=== PATIENT | male | born 1970 | race Caucasian/White ===

== ENCOUNTER 2016-07-07 12:27 | Inpatient (IN) | payer OTHER ==
[~2016-07-07] VITALS: Ht 182.9 cm; Wt 101.9 kg
[~2016-07-07 12:27] MED LIST: COLA100C2; KEFL500C; NEUR600T; PERC5TAB8; PRIL20CA
[2016-07-07] MEDS ORDERED: PANTOPRAZOLE 40MG INJ (PROTONIX) (C9113) As Ordered ONE (13:02)
[2016-07-07] MEDS ORDERED: METOPROLOL 5 MG/5 ML VIAL As Ordered ONE ×3 (13:02→14:30)
[2016-07-07] MEDS ORDERED: ASPIRIN 81 MG CHEW TABLET As Ordered ONE (13:02)
[2016-07-07] MEDS ORDERED: METOPROLOL TART 50 MG TAB As Ordered ONE ×2 (13:02→23:05)
[2016-07-07 13:07] LABS: BASO # 0.2 K/mm3 (0.0-0.2); BASO % 1.6 % (0.0-1.0); EOS # 0.1 K/mm3 (0.0-0.50); EOS % 0.8 % (0.0-3.0); LARGE UNSTAINED CELL # 0.2 K/mm3 (0.0-0.4); LARGE UNSTAINED CELL % 2.3 % (0.0-4.0); LYMPH # 3.2 K/mm3 (1.5-4.5); LYMPH % 28.6 % (24.0-44.0); MEAN CORPUSCULAR HEMOGLOBIN 33.6 pg (27.0-33.0); MEAN CORPUSCULAR HGB CONC 34.8 g/dl (32.0-36.5); MEAN CORPUSCULAR VOLUME 96.4 fl (80.0-96.0); MONO # 0.7 K/mm3 (0.0-0.8); MONO % 6.2 % (0.0-5.0); NEUTROPHILS # 6.3 K/mm3 (1.8-7.7); NEUTROPHILS % 60.5 % (36.0-66.0); PLATELET COUNT, AUTOMATED 207 k/mm3 (150-450); RED CELL DISTRIBUTION WIDTH 13.4 % (11.5-14.5); WHITE BLOOD COUNT 10.5 K/mm3 (4.0-10.0)
[2016-07-07 13:08] LABS: INR 1.03
[2016-07-07 13:18] LABS: ANION GAP 10 MEQ/L (8-16); BLOOD UREA NITROGEN 10 MG/DL (7-18); CALCIUM LEVEL 9.2 MG/DL (8.5-10.1); CARBON DIOXIDE LEVEL 28 MEQ/L (21-32); CHLORIDE LEVEL 100 MEQ/L (98-107); CREATININE FOR GFR 1.09 MG/DL (0.70-1.30); GLOMERULAR FILTRATION RATE > 60.0 (>60); GLUCOSE, FASTING 169 MG/DL (70-105); SODIUM LEVEL 138 MEQ/L (136-145)
[2016-07-07] MEDS ORDERED: POTASSIUM CHLORIDE 10 MEQ SR TABLET As Ordered ONE (13:51)
[2016-07-07 14:02] LABS: ALBUMIN 3.8 GM/DL (3.2-5.2); ALBUMIN/GLOBULIN RATIO 0.93 (1.00-1.93); ALKALINE PHOSPHATASE 79 U/L (45-117); ALT/SGPT 41 U/L (12-78); AST/SGOT 46 U/L (15-37); BILIRUBIN,DIRECT 0.2 MG/DL (0.0-0.2); BILIRUBIN,TOTAL 0.8 MG/DL (0.2-1.0); MAGNESIUM LEVEL 1.9 MG/DL (1.8-2.4); TOTAL PROTEIN 7.9 GM/DL (6.4-8.2)
--- NOTE | 2016-07-07 15:48 | REP ---
Portable chest x-ray: Sitting AP view. History: Chest pain. Findings: The lungs are well inflated and clear. Pleural angles are sharp. Heart is not enlarged. EKG electrodes are seen. An azygos lobe is noted incidentally as before. The patient is status post lower cervical spine fusion. Impression: No active disease. Signed by Kevin Boogie MD 07/07/2016 04:03 P
[2016-07-07] MEDS ORDERED: OMEP20TA PO (15:49)
[2016-07-07] MEDS ORDERED: NORC7.5T PO (15:49)
[2016-07-07] MEDS ORDERED: XANA1TAB2 PO (15:49)
[2016-07-07] MEDS ORDERED: TRIA37.53 PO (15:49)
[2016-07-07] MEDS ORDERED: ENOXAPARIN 100MG/1ML SYRINGE (J1650) As Ordered ONE (16:14)
[2016-07-07] MEDS ORDERED: ONDANSETRON 4MG/2ML VIAL (J2405) IV PRN (17:45)
[2016-07-07] MEDS ORDERED: ONDANSETRON 4 MG TAB (S0181) PO PRN (17:45)
[2016-07-07] MEDS ORDERED: ACETAMINOPHEN TAB 650MG DOSE (2X325MG) PO PRN (17:45)
[2016-07-07] MEDS ORDERED: IPRATROPIUM 0.5MG/ALBUTEROL 2.5MG INH SOL UD 3ML (DUONEB)(J7620) NEB PRN (17:45)
--- NOTE | 2016-07-07 17:58 | HPEPDOC ---
Medical History and Physical Date of Admission 07/07/2016 History and Physical HISTORY AND PHYSICAL Date of admission: 07/07/2016 PCP: Dr. Dumont Chief complaint: Intermittent chest pressure and rapid heart rate HPI: 45-year-old male with hypertension, chronic pain, alcohol dependence, possible COPD, GERD who presented with intermittent chest pressure and rapid heart rate for several months. He states that when these episodes happen, he gets shortness of breath and doesn't feel very well. He has noted that these episodes are worse if he is doing any sort of activity, such as snow blowing. He says that they usually resolve on their own is nothing in particular makes them better. He had written it off for a while as indigestion but he finally became so uncomfortable today that he decided to come to the emergency department. In the ER, he was found to have a new diagnosis of A. fib with a heart rate up to 195. He has responded well to beta blockade and now has a heart rate around the 110s to 120s range. Past medical history: Hypertension, chronic pain, alcohol dependence, possible COPD, GERD Past surgical history: C-spine fusion, knee surgery Family history: Throat cancer, breast cancer, bladder cancer, heart attack, diabetes Social history: Patient states that he used to smoke 1-1/2 packs per day but is trying to cut down and currently smokes about 1 pack per day. He states that he uses marijuana regularly. He states that he used to use cocaine but it has been several years since his last episode. He does report drinking alcohol daily, but is vague about how much. There are some reports to the ED providers that he drank up to 20 some odd beers daily, but he was telling me that he drinks more like 4-6 daily. Allergies: No known allergies Review of systems: General: Positive for subjective fever and chills. Eyes: Positive for vision changes. Negative for ocular discharge ENT: Positive for chronic sore throat. Negative for nose bleed Cardiovascular: Positive for chest pressure and palpitations Respiratory: Positive for cough and shortness of breath GI: Positive for diarrhea. Negative for nausea and vomiting Musculoskeletal: Positive for chronic neck pain Skin: Negative for rash Neuro: Positive for headache, dizziness, and chronic numbness and tingling of his left arm. Psych: Positive for depression. Negative for suicidal ideation and hallucinations. Endocrine: Positive for polyuria. : Negative for dysuria. Heme: Negative for bruising and bleeding Home meds: See below Physical exam: Vital signs: Blood pressure 113/74, HR 110 to 130, temperature 98.7, O2 sat 99% on 2 L, RR 18 Gen.: awake, alert, no acute distress Eyes: Extraocular movements intact, normal sclera ENT: Moist mucous membranes Cardiovascular: Irregularly irregular, tachycardic Lungs: Diffusely coarse with mild wheeze Abdomen: Soft, NT/ND, normal BS Musculoskeletal: normal range of motion Extremities: No peripheral edema Neuro: alert and oriented 3, normal speech, no focal deficits Psych: Normal mood with congruent affect Labs and radiology: See below Troponin negative BNP 213 TSH within normal limits Chest x-ray unremarkable Assessment and plan: 45-year-old male with hypertension, chronic pain, alcohol dependence, possible COPD, GERD who presented with intermittent chest pressure and rapid heart rate for several months. He is being admitted for new diagnosis atrial fibrillation with rapid ventricular response. 1. New diagnosis A. fib with RVR: The patient's heart rate has improved significantly with beta-blockade. We will start him on metoprolol 50 mg by mouth every 6 hours with holding parameters. We will monitor him on telemetry and check an echo. Dr. Deluca will be seeing him in consultation, and initially the patient will be started on treatment dose Lovenox. Initial troponin was unremarkable, but we will continue to trend these. 2. Alcohol dependence: The patient will be started on scheduled Serax, as well as as needed Ativan for withdrawal symptoms. The patient also reports that he has been on 1 mg of Xanax 4 times a day for the past year, and ran out of these several days ago. I suspect that he is also experiencing some withdrawal from the benzos. 3. Hypertension: Continue home triamterene and hydrochlorothiazide. 4. Chronic pain: Continue home medicines. 5. Possible COPD: The patient's lungs are mildly coarse. We'll put the patient on as needed DuoNeb's. 6. GERD: Continue home PPI. DVT prophylaxis: Treatment dose Lovenox Dispo: admit as an inpatient to the service of Dr. Landon. CODE STATUS: Full code Vital Signs see above Laboratory Data Labs 24H Laboratory Tests 2 07/07/16 12:42: Activated Partial Thromboplast Time 29.0, Aspartate Amino Transf (AST/SGOT) 46H , Alanine Aminotransferase (ALT/SGPT) 41, Alkaline Phosphatase 79, Total Bilirubin 0.8, Direct Bilirubin 0.2, Albumin 3.8, Albumin/Globulin Ratio 0.93L, Anion Gap 10, B-Type Natriuretic Peptide 213H, White Blood Count 10.5H, Red Blood Count 4.77, Hemoglobin 16.0, Hematocrit 46.0, Mean Corpuscular Volume 96.4H, Mean Corpuscular Hemoglobin 33.6H, Mean Corpuscular Hemoglobin Concent 34.8, Red Cell Distribution Width 13.4, Platelet Count 207, Neutrophils (%) ( Auto) 60.5, Lymphocytes (%) (Auto) 28.6, Monocytes (%) (Auto) 6.2H, Eosinophils (%) (Auto) 0.8, Basophils (%) (Auto) 1.6H, Neutrophils # (Auto) 6.3, Lymphocytes # (Auto) 3.2, Monocytes # (Auto) 0.7, Eosinophils # (Auto) 0.1, Basophils # (Auto) 0.2, Calcium Level 9.2, Creatine Kinase MB 9.0H, Creatine Kinase MB Relative Index 1.86, Glomerular Filtration Rate > 60.0, Large Unclassified Cells # 0.2, Large Unclassified Cells % 2.3, Lipase 166, Magnesium Level 1.9, Prothromb Time International Ratio 1.03, Prothrombin Time 13.6, Thyroid Stimulating Hormone (TSH) 1.340, Total Creatine Kinase 483H, Total Protein 7.9, Troponin I < 0.02 CBC/BMP Laboratory Tests 07/07/16 12:42 Red Blood Count 4.77, Mean Corpuscular Volume 96.4 H, Mean Corpuscular Hemoglobin 33.6 H, Mean Corpuscular Hemoglobin Concent 34.8, Red Cell Distribution Width 13.4, Neutrophils (%) (Auto) 60.5, Lymphocytes (%) (Auto) 28.6, Monocytes (%) (Auto) 6.2 H, Eosinophils (%) (Auto) 0.8, Basophils (%) ( Auto) 1.6 H, Neutrophils # (Auto) 6.3, Lymphocytes # (Auto) 3.2, Monocytes # ( Auto) 0.7, Eosinophils # (Auto) 0.1, Basophils # (Auto) 0.2 Home Medications Scheduled Hydrochlorothiazide W/Triamter (Triamterene/Hydrochloroth 37.5-25 mg) 1 Cap Cap 1 CAP PO DAILY Omeprazole (Omeprazole) 20 Mg Tab 20 MG PO BID Scheduled PRN Acetaminophen/Hydrocodone ([place] 7.5-325 mg) 1 Tab Tab 1 TAB PO TID PRN PRN PAIN Alprazolam (Xanax) 1 Mg Tab 1 MG PO QID PRN PRN ANXIETY Allergies Coded Allergies: No Known Allergies (Verified Allergy, Unknown, 07/29/07) RICHARD PENA Jul 07, 2016 17:58
[2016-07-07] MEDS: METOPROLOL TART 50 MG TAB PO SCH ×2 (18:00→23:15)
[2016-07-07] MEDS ORDERED: NICOTINE 21MG/24HR 1 EA TRANSDERMAL As Ordered ONE (18:08)
[2016-07-07] MEDS ORDERED: ACETAMINOPHEN 325 MG TAB As Ordered ONE (18:08)
--- NOTE | 2016-07-07 19:17 | ECGEPIP ---
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 RBBB Electronically Signed On 07-07-2016 19:17:33 EST by Ollie Jones
--- NOTE | 2016-07-07 19:20 | ECGEPIP ---
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 RBBB BORDERLINE LEFT AXIS DEVIATION RATE IMPROVED FROM 07/07/15 12:37 Electronically Signed On 07-07-2016 19:20:48 EST by Ollie Jones
[2016-07-07] MEDS ORDERED: NITROGLYCERIN 0.4 MG SUBL TABLET As Ordered ONE (19:41)
[2016-07-07] MEDS ORDERED: ANEXSIA, NORCO 7.5MG/325MG TABLET(HYDROCODONE/APAP) PO ONE (20:15)
[2016-07-07] MEDS ORDERED: ANEXSIA, NORCO 7.5MG/325MG TABLET(HYDROCODONE/APAP) As Ordered ONE (20:20)
[2016-07-07 22:45] VITALS: BP 142/88
[2016-07-07] MEDS ORDERED: OMEPRAZOLE 20 MG CAP As Ordered ONE (23:04)
[2016-07-07] MEDS ORDERED: OXAZEPAM 15 MG CAP As Ordered ONE (23:05)
[2016-07-07] MEDS: OMEPRAZOLE 20 MG CAP PO SCH (23:15)
[2016-07-07] MEDS: OXAZEPAM 15 MG CAP PO SCH (23:15)
[2016-07-07] MEDS ORDERED: LORazepam 2 MG/ML VIAL (J2060) As Ordered ONE (23:19)
[2016-07-07] MEDS: LORazepam 2 MG/ML VIAL (J2060) IV PRN (23:21)
[2016-07-08] VITALS (8 sets, daily range): BP systolic 104–156; BP diastolic 63–93
[2016-07-08] MEDS ORDERED: ENOXAPARIN 100MG/1ML SYRINGE (J1650) SC SCH ×2 (06:00→06:18)
[2016-07-08] MEDS ORDERED: ENOXAPARIN 120 MG/0.8 ML SYR (J1650) SC SCH (06:00)
[2016-07-08] MEDS ORDERED: OXAZEPAM 15 MG CAP As Ordered ONE ×2 (06:16→13:57)
[2016-07-08] MEDS ORDERED: METOPROLOL TART 50 MG TAB As Ordered ONE ×2 (06:16→11:54)
[2016-07-08] MEDS: METOPROLOL TART 50 MG TAB PO SCH ×3 (06:30→18:20)
[2016-07-08] MEDS: OXAZEPAM 15 MG CAP PO SCH ×3 (06:31→21:26)
[2016-07-08] MEDS: ENOXAPARIN 120 MG/0.8 ML SYR (J1650) SC SCH ×2 (06:32→19:13)
[2016-07-08] MEDS ORDERED: ANEXSIA, NORCO 7.5MG/325MG TABLET(HYDROCODONE/APAP) As Ordered ONE (06:37)
[2016-07-08] MEDS: ANEXSIA, NORCO 7.5MG/325MG TABLET(HYDROCODONE/APAP) PO PRN ×2 (06:39→18:23)
[2016-07-08 08:58] LABS: BASO # 0.1 K/mm3 (0.0-0.2); BASO % 0.8 % (0.0-1.0); EOS # 0.2 K/mm3 (0.0-0.50); EOS % 1.9 % (0.0-3.0); LARGE UNSTAINED CELL # 0.3 K/mm3 (0.0-0.4); LARGE UNSTAINED CELL % 2.9 % (0.0-4.0); LYMPH # 2.7 K/mm3 (1.5-4.5); LYMPH % 29.7 % (24.0-44.0); MEAN CORPUSCULAR HEMOGLOBIN 34.1 pg (27.0-33.0); MEAN CORPUSCULAR HGB CONC 34.9 g/dl (32.0-36.5); MEAN CORPUSCULAR VOLUME 97.7 fl (80.0-96.0); MONO # 0.6 K/mm3 (0.0-0.8); MONO % 6.1 % (0.0-5.0); NEUTROPHILS # 5.4 K/mm3 (1.8-7.7); NEUTROPHILS % 58.6 % (36.0-66.0); PLATELET COUNT, AUTOMATED 193 k/mm3 (150-450); RED CELL DISTRIBUTION WIDTH 12.5 % (11.5-14.5); WHITE BLOOD COUNT 9.2 K/mm3 (4.0-10.0)
[2016-07-08] MEDS ORDERED: DYAZIDE 37.5/25 CAP (TRIAM/HCTZ) PO SCH (09:00)
[2016-07-08 09:14] LABS: INR 1.14
[2016-07-08 09:20] LABS: ALBUMIN 3.4 GM/DL (3.2-5.2); ALKALINE PHOSPHATASE 70 U/L (45-117); ALT/SGPT 35 U/L (12-78); ANION GAP 8 MEQ/L (8-16); AST/SGOT 31 U/L (15-37); BILIRUBIN,TOTAL 0.8 MG/DL (0.2-1.0); BLOOD UREA NITROGEN 15 MG/DL (7-18); CARBON DIOXIDE LEVEL 29 MEQ/L (21-32); CHLORIDE LEVEL 104 MEQ/L (98-107); CREATININE FOR GFR 0.92 MG/DL (0.70-1.30); GLOMERULAR FILTRATION RATE > 60.0 (>60); GLUCOSE, FASTING 109 MG/DL (70-105); POTASSIUM SERUM 4.1 MEQ/L (3.5-5.1); SODIUM LEVEL 141 MEQ/L (136-145); TOTAL PROTEIN 6.8 GM/DL (6.4-8.2)
[2016-07-08] MEDS ORDERED: OMEPRAZOLE 20 MG CAP As Ordered ONE (09:20)
[2016-07-08] MEDS ORDERED: NICOTINE 21MG/24HR 1 EA TRANSDERMAL As Ordered ONE (09:20)
[2016-07-08] MEDS: OMEPRAZOLE 20 MG CAP PO SCH ×2 (09:24→21:26)
[2016-07-08] MEDS: NICOTINE 21MG/24HR 1 EA TRANSDERMAL TD SCH (09:25)
[2016-07-08] MEDS ORDERED: LORazepam 2 MG/ML VIAL (J2060) As Ordered ONE (11:49)
[2016-07-08] MEDS: LORazepam 2 MG/ML VIAL (J2060) IV PRN ×3 (11:56→22:23)
--- NOTE | 2016-07-08 17:53 | CR.PDOC ---
[facility] Cardiology Consultation Date of Consultation 07/08/16 Cadiology Consultation REFERRING PHYSICIAN: Dr. Felder REASON FOR REFERRAL: New onset A. fib HISTORY OF PRESENT ILLNESS: 45 y/o male w/ past medical history of chronic back and neck pain, HTN and alcohol abuse presents with pressure like CP in mid-sternal, epigastric area for past 20 years that was initially controlled with prilosec, have begun to notice over past 2 weeks diaphoresis after showering and shoveling snow. Nothing seems to make it better. The pt states that at times the chest pressure is now awakening him from sleep, and that his prilosec no longer controls the symptoms as it had been doing for the past 20 years. He admits to night sweats for the past 2 weeks, no history of being ill, no fevers or chills, muscle aches. Admits to palpitations, but these have been ongoing for the past 2 years. Denies any further cardiac history, and admits he has never been told nor known he had an irregular heart rhythm/rate. Denies dizziness or LOC. Admits to extensive and heavy alcohol history, pt currently drinks 2-22 beers a day for the past 15 years, also admits to using intranasal cocaine 5 years ago, smokes 1 ppd since he was a teenager and also daily marijuana use. Pt is disabled from chronic back pain and surgery. Echocardiogram Doppler: none to date [Regadenoson/Dobutamine] stress SPECT myocardial perfusion imaging 1. n/a ALLERGIES: Please see below. HOME MEDICATIONS: Please see below. CURRENT MEDICATIONS: Please see below. PAST MEDICAL & SURGICAL HISTORY: 1. Chronic alcohol use/abuse 2. chronic back and neck pain 3. HTN SURGICAL HX: 1. Carpal tunnel release 2. Cervical discectomy with fusion SOCIAL HISTORY: Heavy alcohol use/abuse of 2-22 beers a day for the past 15 years. Smokes 1 ppd since he was a teenager. Daily marijuana use. Has not done intranasal cocaine for >5 yrs. No history of IVDU. REVIEW OF SYSTEMS: Positive for mid sternal and epigastric chest pressure, for past 20 yrs. Pt states that it has been accompanied with 2 weeks of diaphoresis after showering and with physical activity such as snow shoveling. States he saw a primary care doctor in [place] about 20 years ago with similar complaints of the chest pressure, and he was prescribed Prilosec which have controlled the symptoms up until now. States the medication doesn't work as well and is concerned with the diaphoresis. Admits to night sweats for the past 2 weeks, and hesitancy with urination. Pt. also admits to heart palpitations that come on intermittently, unchanged for past 2 years. Cardio: palpitations for past 2 years unchanged, pressure like CP mid sternum, epigastric area for past 20 years usually resolved with Prilosec. Denied LOC or syncope. : hesitancy with urination and loose BM for years. Resp: Denies SOB or cough/wheezing Abdominal: Denies distension, abdominal pain or n/v HEENT: Admits to blurred vision since being in the ED, denies headache, sore throat All other 10 point review of systems questions negative. FAMILY HISTORY: non-pertinent PHYSICAL EXAMINATION: VITAL SIGNS: Please see below. GENERAL APPEARANCE: laying comfortably in ED bed, appears a bit diaphoretic on forehead, denies feeling heart palpitations EYES: PERRLA, EOMI, no icteric sclera ENT/Mouth: moist mucus membranes, tongue midline NECK: supple, cannot appreciate any JVD EXTREMITIES: + dorsalis pedis and posterior tibial pulses b/l, no cyanosis or clubbing or edema appreciated SKIN: intact, without bruising NEUROLOGIC/PSYCHOLOGIC: no focal deficit appreciated MUSCULOSKELETAL: good strength THORAX: non tender to palpitation above area of reported CP HEART: Tachycardic rate 140's while in bed, no murmurs appreciated, irregularly irregular pulse, normal s1 and s2 ARTERIAL PULSES: see above LOWER EXTREMITY EDEMA: no ABDOMEN: NABSx4, non distended, no organomeglay Electrocardiogram: ECG showed 07-07-2016 ATRIAL FIBRILLATION WITH RAPID VENTRICULAR RESPONSE INC. RBBB BORDERLINE LEFT AXIS DEVIATION LABORATORY DATA: Please see below. IMAGING: CXR negative ASSESSMENT/PLAN: 1. Atrial fibrillation most likely 2/2 chronic alcohol use- unfortunately unless pt dramatically decreases his alcohol intake, he will most likely always have episodes of a. fib., in addition to his metoprolol 50 mg q6h recommend adding on Cardizam PO 30 mg q8h for better rate control. Will hold on anticoagulation, and may consider adding on Lovenox in AM. 2. Alcohol abuse- pt is on serax and ativan for alcohol w/d, continue to monitor , primary team to manage. 3. HTN- pt's BP has been stable, continue to monitor, no changes at this point. Thank you kindly for asking me to participate in the care of your patient. Addendum Nathalie Deluca MD: Patient was seen and examined. I fully agree with assessment and plann outlined by . Vital Signs/I&O Vital Signs Date Time Temp Pulse Resp B/P Pulse Ox O2 Delivery O2 Flow Rate FiO2 07/08/16 17:00 Room Air 07/08/16 17:00 96.3 93 18 123/92 98 07/08/16 12:00 2.0 I&O- Last 24 Hours up to 6 AM 07/08/16 06:00 Intake Total 0 ml Output Total 0 ml Balance 0 ml Laboratory Data Labs 24H Laboratory Tests 2 07/07/16 19:51: Creatine Kinase MB 5.7H, Creatine Kinase MB Relative Index 1.79, Total Creatine Kinase 317H, Troponin I < 0.02 07/08/16 00:05: Creatine Kinase MB 6.3H, Creatine Kinase MB Relative Index 2.44, Total Creatine Kinase 258, Troponin I < 0.02 07/08/16 08:21: Creatine Kinase MB 4.9H, Creatine Kinase MB Relative Index 2.47, Total Creatine Kinase 198, Troponin I < 0.02, Blood Urea Nitrogen 15, Creatinine 0.92, Sodium Level 141, Potassium Level 4.1#, Chloride Level 104, Carbon Dioxide Level 29, Calcium Level 9.0, Aspartate Amino Transf (AST/SGOT) 31, Alanine Aminotransferase (ALT/SGPT) 35, Alkaline Phosphatase 70, Total Bilirubin 0.8, Total Protein 6.8, Albumin 3.4, Albumin/Globulin Ratio 1.00, Anion Gap 8, White Blood Count 9.2, Red Blood Count 4.62, Hemoglobin 15.8, Hematocrit 45.2, Mean Corpuscular Volume 97.7H, Mean Corpuscular Hemoglobin 34.1H, Mean Corpuscular Hemoglobin Concent 34.9, Red Cell Distribution Width 12.5, Platelet Count 193, Neutrophils (%) (Auto) 58.6, Lymphocytes (%) (Auto) 29.7, Monocytes (%) (Auto) 6.1H, Eosinophils (%) (Auto) 1.9, Basophils (%) (Auto) 0.8, Neutrophils # (Auto ) 5.4, Lymphocytes # (Auto) 2.7, Monocytes # (Auto) 0.6, Eosinophils # (Auto) 0.2, Basophils # (Auto) 0.1, Glomerular Filtration Rate > 60.0, Large Unclassified Cells # 0.3, Large Unclassified Cells % 2.9, Magnesium Level 2.0, Prothromb Time International Ratio 1.14, Prothrombin Time 14.7H CBC/BMP Laboratory Tests 07/08/16 08:21 Calcium Level 9.0, Aspartate Amino Transf (AST/SGOT) 31, Alanine Aminotransferase (ALT/SGPT) 35, Alkaline Phosphatase 70, Total Bilirubin 0.8, Total Protein 6.8, Albumin 3.4, Red Blood Count 4.62, Mean Corpuscular Volume 97.7 H, Mean Corpuscular Hemoglobin 34.1 H, Mean Corpuscular Hemoglobin Concent 34.9, Red Cell Distribution Width 12.5, Neutrophils (%) (Auto) 58.6, Lymphocytes (%) (Auto) 29.7, Monocytes (%) (Auto) 6.1 H, Eosinophils (%) (Auto) 1.9, Basophils (%) (Auto) 0.8, Neutrophils # (Auto) 5.4, Lymphocytes # (Auto) 2.7, Monocytes # (Auto) 0.6, Eosinophils # (Auto) 0.2, Basophils # (Auto) 0.1 Home Medications Scheduled Hydrochlorothiazide W/Triamter (Triamterene/Hydrochloroth 37.5-25 mg) 1 Cap Cap 1 CAP PO DAILY (Reported) Omeprazole (Omeprazole) 20 Mg Tab 20 MG PO BID (Reported) Scheduled PRN Acetaminophen/Hydrocodone ([facility] [place] 7.5-325 mg) 1 Tab Tab 1 TAB PO TID PRN PRN PAIN (Reported) Alprazolam (Xanax) 1 Mg Tab 1 MG PO QID PRN PRN ANXIETY (Reported) Current Medications Current Medications Acetaminophen (Tylenol) 650 mg Q4HP PRN PO MILD PAIN OR FEVER; Start 07/07/16 at 17:45; Stop 08/06/16 at 17:44 Acetaminophen (Tylenol) 650 mg STK-MED ONCE As Ordered ; Start 07/07/16 at 18:08 ; Stop 07/07/16 at 18:09; Status DC Acetaminophen/ Hydrocodone Bitart (Anexsia, [facility] [place] 7.5mg/325mg) 1 tab ONCE ONCE PO ; Start 07/07/16 at 20:15; Stop 07/07/16 at 20:16; Status DC Acetaminophen/ Hydrocodone Bitart (Anexsia, [facility] [place] 7.5mg/325mg) 1 tab STK-MED ONCE As Ordered ; Start 07/07/16 at 20:20; Stop 07/07/16 at 20:21; Status DC Acetaminophen/ Hydrocodone Bitart (Anexsia, [facility] [place] 7.5mg/325mg) 1 tab STK-MED ONCE As Ordered ; Start 07/08/16 at 06:37; Stop 07/08/16 at 06:38; Status DC Acetaminophen/ Hydrocodone Bitart (Anexsia, [facility] [place] 7.5mg/325mg) 1 tab TID PRN PO PAIN Last administered on 07/08/16t 06:39; Start 07/07/16 at 17:45; Stop at 17:44 Albuterol/ Ipratropium (Duoneb (Ipr 0.5mg/Alb 2.5mg)) 3 ml Q4HP PRN NEB SOB/ WHEEZING; Start 07/07/16 at 17:45; Stop 08/06/16 at 17:44 Aspirin (Aspirin Chewable) 324 mg STK-MED ONCE As Ordered ; Start 07/07/16 at 13: 02; Stop 07/07/16 at 13:03; Status DC Enoxaparin Sodium (Lovenox) 100 mg STK-MED ONCE As Ordered ; Start 07/07/16 at 16 :14; Stop 07/07/16 at 16:15; Status DC Enoxaparin Sodium (Lovenox) 120 mg Q12H SC Last administered on 07/08/16t 06:32 ; Start 07/08/16 at 06:00; Stop 07/13/16 at 05:59 Enoxaparin Sodium (Lovenox) 120 mg Q12H SC ; Start 07/08/16 at 06:00; Stop at 06:18; Status DC Enoxaparin Sodium (Lovenox) 120 mg Q12H SC ; Start 07/08/16 at 06:00; Stop at 06:20; Status DC Enoxaparin Sodium (Lovenox) 120 mg Q12H SC ; Start 07/08/16 at 06:18; Stop at 06:18; Status DC Home Med (Med Rec Complete!) ASDIRECTED XX ; Start 07/07/16 at 16:00; Stop at 16:12; Status DC Lorazepam (Ativan) 2 mg Q2HP PRN IV WITHDRAWAL SYMPTOMS Last administered on 11:56; Start 07/07/16 at 17:45; Stop 07/14/16 at 17:44 Lorazepam (Ativan) 2 mg STK-MED ONCE As Ordered ; Start 07/07/16 at 23:19; Stop 07/07/16 at 23:20; Status DC Lorazepam (Ativan) 2 mg STK-MED ONCE As Ordered ; Start 07/08/16 at 11:49; Stop 07/08/16 at 11:50; Status DC Metoprolol Tartrate (Lopressor) 15 mg STK-MED ONCE As Ordered ; Start 07/07/16 at 13:02; Stop 07/07/16 at 13:03; Status DC Metoprolol Tartrate (Lopressor) 15 mg STK-MED ONCE As Ordered ; Start 07/07/16 at 13:51; Stop 07/07/16 at 13:52; Status DC Metoprolol Tartrate (Lopressor) 15 mg STK-MED ONCE As Ordered ; Start 07/07/16 at 14:30; Stop 07/07/16 at 14:31; Status DC Metoprolol Tartrate (Lopressor) 50 mg Q6H PO Last administered on 07/08/16 11: 56; Start 07/07/16 at 18:00; Stop 08/06/16 at 17:59 Metoprolol Tartrate (Lopressor) 50 mg STK-MED ONCE As Ordered ; Start 07/07/16 at 13:02; Stop 07/07/16 at 13:03; Status DC Metoprolol Tartrate (Lopressor) 50 mg STK-MED ONCE As Ordered ; Start 07/07/16 at 23:05; Stop 07/07/16 at 23:06; Status DC Metoprolol Tartrate (Lopressor) 50 mg STK-MED ONCE As Ordered ; Start 07/08/16 at 06:16; Stop 07/08/16 at 06:17; Status DC Metoprolol Tartrate (Lopressor) 50 mg STK-MED ONCE As Ordered ; Start 07/08/16 at 11:54; Stop 07/08/16 at 11:55; Status DC Nicotine (Nicoderm Cq 21mg) 1 patch DAILY TD Last administered on 07/08/16 09: 25; Start 07/08/16 at 09:00; Stop 08/07/16 at 08:59 Nicotine (Nicoderm Cq 21mg) 1 patch STK-MED ONCE As Ordered ; Start 07/07/16 at 18:08; Stop 07/07/16 at 18:09; Status DC Nicotine (Nicoderm Cq 21mg) 1 patch STK-MED ONCE As Ordered ; Start 07/08/16 at 09:20; Stop 07/08/16 at 09:21; Status DC Nitroglycerin (Nitrostat (1/ 150)) 0.4 mg STK-MED ONCE As Ordered ; Start at 19:41; Stop 07/07/16 at 19:42; Status DC Omeprazole (PriLOSEC) 20 mg BID PO Last administered on 07/08/16 09:24; Start 07/07/16 at 21:00; Stop 08/06/16 at 20:59 Omeprazole (PriLOSEC) 20 mg STK-MED ONCE As Ordered ; Start 07/07/16 at 23:04; Stop 07/07/16 at 23:05; Status DC Omeprazole (PriLOSEC) 20 mg STK-MED ONCE As Ordered ; Start 07/08/16 at 09:20; Stop 07/08/16 at 09:21; Status DC Ondansetron HCl (Zofran) 4 mg Q6HP PRN IV NAUSEA OR VOMITING; Start 07/07/16 at 17:45; Stop 08/06/16 at 17:44 Ondansetron HCl (Zofran) 4 mg Q6HP PRN PO NAUSEA OR VOMITING; Start 07/07/16 at 17:45; Stop 08/06/16 at 17:44 Oxazepam (Serax) 15 mg Q8H PO Last administered on 07/08/16 14:02; Start at 22:00; Stop 07/14/16 at 21:59 Oxazepam (Serax) 15 mg STK-MED ONCE As Ordered ; Start 07/07/16 at 23:05; Stop at 23:06; Status DC Oxazepam (Serax) 15 mg STK-MED ONCE As Ordered ; Start 07/08/16 at 06:16; Stop at 06:17; Status DC Oxazepam (Serax) 15 mg STK-MED ONCE As Ordered ; Start 07/08/16 at 13:57; Stop at 13:58; Status DC Pantoprazole Sodium (Protonix) 40 mg STK-MED ONCE As Ordered ; Start 07/07/16 at 13:02; Stop 07/07/16 at 13:03; Status DC Potassium Chloride (Micro-K Extencaps) 40 meq STK-MED ONCE As Ordered ; Start at 13:51; Stop 07/07/16 at 13:52; Status DC Triamterene/HCTZ (Dyazide 37.5-25 Mg) 1 ea DAILY PO Last administered on t 09:24; Start 07/08/16 at 09:00; Stop 08/07/16 at 08:59 Allergies Allergies: Coded Allergies: No Known Allergies (Verified Allergy, Unknown, 07/29/07) GME ATTESTATION GME ATTESTATION My preceptor for this patient encounter was physically present in the building during the encounter and was fully available. As needed, all aspects of the patient interview, examination, medical decision making process, and medical care plan development were reviewed and approved by the preceptor. Preceptor is aware and concurs with the plan as stated in the body of this note and will attest to such by his/her cosignature. SHENA CAMILO DO Jul 08, 2016 17:53 Nathalie Deluca MD Jul 08, 2016 22:45
--- NOTE | 2016-07-08 17:55 | EDDOCDS ---
Nurse's Notes [facility] Name: Arley Harris Age: 45 yrs Sex: Male : 1970 Arrival Date: 07/07/2016 Time: 12:27 Bed Admit Hold Private MD: Isael Dumont Abdul Diagnosis: Persistent atrial fibrillation;Alcohol abuse;Hypokalemia Presentation: 07/07 12:28 Presenting complaint: Patient states: patient states that he ran out of his xanax and ml6 hydrocodone due to the holidays, patient diaphoretic, shaking, states that he is having chest pressure 6/10. Aspirin was not taken prior to arrival. Adult Sepsis Screening: The patient does not have new or worsening altered mentation. Patient's respiratory rate is less than 22. Systolic blood pressure is greater than 100. Patient has a qSOFA score of 0- Negative Sepsis Screen. Suicide/Homicide risk assessment- the patient denies having any suicidal and/or homicidal ideations and does not present with any other emotional, behavioral or mental health complaints. 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 Transition of care: patient was not received from another setting of care. Red Flag criteria, patient assessed and taken directly to a bed. 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 12:28 Acuity: PERLA Level 2 ml6 12:28 Method Of Arrival: Walkin/Carried/Asstd ml6 Triage Assessment: 12:43 General: Appears distressed. Pain: Location: chest Pain currently is 6 out of 10 on a ml6 pain scale. Pain does not radiate. Quality of pain is described as aching, Pain began 1 day ago. HIV screening NA for this visit Offered previously. Neurological: No deficits noted. Cardiovascular: Capillary refill < 3 seconds is brisk in bilateral fingers toes Heart tones S1 S2 present Edema is absent. Chest pain is described as mild, quality is pressure, radiates Does not radiate. episodes are continuous began 4 hours prior to arrival. Historical: - Allergies: no known allergies; - Home Meds: 1. hydrocodone-acetaminophen 7.5-325 mg Oral tab 2 tab every 8 hours (Last dose: 07/06/2016 20:00) 2. Xanax 1 mg Oral tab 1 tab every 6 hours (Last dose: 07/05/2016) 3. triamterene-hydrochlorothiazid 37.5-25 mg Oral tab 1 tab once daily (Last dose: 07/07/2016 07:00) - PMHx: back pain; Hypertension; ETOH abuse; - PSHx: Carpal Tunnel Repair- Bilateral; ANTERIOR CERVICAL DISCECTOMY WITH FUSION AND INSTRUMENTATION; - The history from nurses notes was reviewed: and I agree with what is documented. - Social history: Smoking status: Patient uses tobacco products, heavy tobacco smoker. No barriers to communication noted, Speaks appropriately for age, Patient uses alcohol reports 2 drinks this AM. - Family history: Not pertinent. - : The pt / caregiver states he / she is not on anticoagulants. Home medication list is obtained from the patient. - Hospitalizations: : No recent hospitalization is reported. - Exposure Risk Screening:: None identified. - Immunization history:: All immunizations up-to-date. - Social history:: the patient smokes cigarettes 1ppd the patient drinks alcohol, 6-26 beers per day every day the patient uses illicit drugs, including marijuana. Screenin:47 Screening information is obtained from the patient. Fall risk: No risks identified. pml Assistance ADL's: requires no assistance with activities of daily living. Abuse/DV Screen: The patient / caregiver reports he/she is: not in a situation that causes fear, pain or injury. Nutritional screening: No deficits noted. Advance Directives: Currently, there is no health care proxy. home support is adequate. Assessment: 12:45 General: Appears in no apparent distress, Behavior is anxious, appropriate for age, pml cooperative. Pain: Location: chest Quality of pain is described as vibration. Neurological: Level of Consciousness is awake, alert, Oriented to person, place, time. Cardiovascular: Capillary refill < 3 seconds Rhythm is atrial fibrillation with rapid ventricular response. Respiratory: Airway is patent Respiratory effort is even, unlabored, Breath sounds are coarse Breath sounds with rhonchi expiratory bilaterally. GI: Abdomen is non- distended. Derm: Skin is pink, warm & dry. 13:39 General: resting on stretcher, resps easy and unlabored, atrial fib in 130s on monitor. pml denies pain, continues to report "indigestion" in chest at times. 14:37 General: First contact with pt. Pt sitting up quietly in bed. Pleasant and cooperative. ld5 Denies pain. Pt up to scale. Tolerated well. Pt medicated per orders. Will continue to monitor. 14:51 General: BP discussed with provider. Further dosing of metoprolol held at this time. ld5 Primary RN made aware. 15:13 General: Appears in no apparent distress, Behavior is appropriate for age, cooperative. pml Pain: Location: anterior aspect of left upper chest Pain currently is 5 out of 10 on a pain scale. Pain: Quality of pain is described as pressure. Neurological: Level of Consciousness is awake, alert, Oriented to person, place, time. Cardiovascular: Capillary refill < 3 seconds Rhythm is atrial fibrillation with rapid ventricular response. Respiratory: Airway is patent Respiratory effort is even, unlabored. Derm: Skin is pink, warm & dry. 16:19 General: reports pressure persists to left chest wall 3/10. medicated as indicated on pml emar. MD Felder at bedside. remains in afib at 120s-130s. 17:15 General: Appears in no apparent distress, comfortable, Behavior is appropriate for age, pml cooperative. Pain: Location: buttocks Pain currently is 10 out of 10 on a pain scale. Neurological: Level of Consciousness is awake, alert, Oriented to person, place, time. Cardiovascular: Capillary refill < 3 seconds Rhythm is atrial fibrillation with rapid ventricular response. Respiratory: Airway is patent Respiratory effort is even, unlabored. Derm: Skin is pink, warm & dry. 18:13 General: resting on stretcher, no apparent distress. resps easy and unlabored, skin pml p/w/d. atrial fib on monitor. reports pain in buttocks. . 19:20 General: Appears in no apparent distress, comfortable, Behavior is cooperative. mlc Neurological: Level of Consciousness is awake, alert, Oriented to person, place, time. Cardiovascular: Rhythm is atrial fibrillation. Respiratory: Airway is patent Respiratory effort is even, unlabored, Respiratory pattern is regular. Derm: Skin is pink, warm & dry. 19:43 Reassessment: pt reports a burning pain in his chest, pt medicated per order. resp mlc easy/unlabored. no other symptoms at this time. . 20:30 General: pt medicated per order. resp easy/unlabored. . mlc 21:20 Reassessment: Patient appears in no apparent distress at this time. Patient states mlc feeling better. pt resting comfortably, lights dimmed for comfort. resp easy/unlabored. . 22:39 General: Appears in no apparent distress, comfortable, Behavior is cooperative. mlc Neurological: Level of Consciousness is awake, alert, Oriented to person, place, time. Respiratory: Airway is patent Respiratory effort is even, unlabored, Respiratory pattern is regular. Derm: Skin is pink, warm & dry. 22:39 General: report given to Carmen Farley, RN (enriquez nurse). See [facility] for further [facility] documentation. . Vital Signs: 12:28 BP 163 / 109; Pulse 156; Resp 18 S; Temp 98.7(O); Weight 115.67 kg (R); Height 6 ft. 0 gr2 in. (182.88 cm) (R); Pain 6/10; 12:39 BP 141 / 95 (auto/); pml 12:40 Pulse 120 MON; Pulse Ox 100% ; pml 13:04 Pulse 158 MON; Pulse Ox 99% ; pml 13:04 BP 126 / 100 (auto/); pml 13:09 Pulse 150 MON; Pulse Ox 99% ; pml 13:09 BP 159 / 93 (auto/); pml 13:10 BP 159 / 93; Pulse 138; pml 13:14 Pulse 124 MON; Pulse Ox 100% ; pml 13:14 BP 118 / 80 (auto/); pml 13:15 BP 118 / 80; Pulse 118; pml 13:32 Pulse 120 MON; Pulse Ox 100% ; pml 13:32 BP 115 / 81 (auto/); pml 13:57 BP 121 / 76 (auto/); ld5 13:57 Pulse 134 MON; Pulse Ox 100% ; ld5 14:02 BP 131 / 86 (auto/); ld5 14:02 Pulse 116 MON; Pulse Ox 100% ; ld5 14:02 BP 131 / 86; Pulse 109; pml 14:07 BP 139 / 92 (auto/); ld5 14:07 Pulse 118 MON; Pulse Ox 100% ; ld5 14:07 BP 139 / 92; Pulse 106; pml 14:17 BP 120 / 83 (auto/); ld5 14:17 Pulse 114 MON; Pulse Ox 100% ; ld5 14:29 Weight 104.33 kg (M); ld5 14:32 BP 119 / 77 (auto/); ld5 14:32 Pulse 114 MON; Pulse Ox 100% ; ld5 14:42 BP 104 / 73; Pulse 108; ld5 14:45 Pulse 108 MON; Pulse Ox 99% ; pml 14:45 BP 104 / 73 (auto/); pml 15:03 Pulse 108 MON; Pulse Ox 100% ; pml 15:03 BP 112 / 80 (auto/); pml 15:31 Pulse 112 MON; Pulse Ox 99% ; pml 15:33 BP 115 / 69 (auto/); pml 16:03 Pulse 108 MON; Pulse Ox 99% ; pml 16:03 BP 110 / 74 (auto/); pml 16:28 Pulse 128 MON; Pulse Ox 99% ; pml 16:28 BP 113 / 74 (auto/); pml 16:33 Pulse 124 MON; Pulse Ox 99% ; pml 16:33 BP 116 / 92 (auto/); pml 16:48 Pulse 120 MON; Pulse Ox 100% ; pml 16:48 BP 135 / 71 (auto/); pml 17:03 Pulse 124 MON; Pulse Ox 99% ; pml 17:03 BP 147 / 64 (auto/); pml 17:18 Pulse 122 MON; Pulse Ox 99% ; pml 17:18 BP 129 / 56 (auto/); pml 17:33 Pulse 122 MON; Pulse Ox 99% ; pml 17:33 BP 109 / 55 (auto/); pml 17:48 Pulse 132 MON; Pulse Ox 99% ; pml 17:48 BP 160 / 74 (auto/); pml 18:57 Pulse 122 MON; Pulse Ox 97% ; mlc 18:57 BP 137 / 77 (auto/); mlc 19:12 Pulse 122 MON; Pulse Ox 97% ; mlc 19:12 BP 124 / 78 (auto/); mlc 19:27 Pulse 118 MON; Pulse Ox 99% ; mlc 19:27 BP 112 / 89 (auto/); mlc 19:42 BP 127 / 92 (auto/); mlc 19:42 Pulse 124 MON; Pulse Ox 99% ; mlc 19:53 Pulse 132 MON; Pulse Ox 99% ; mlc 19:53 BP 134 / 77 (auto/); mlc 19:55 BP 134 / 77; Pulse 122; mlc 20:12 Pulse 124 MON; Pulse Ox 99% ; mlc 20:12 BP 115 / 82 (auto/); mlc 20:27 Pulse 134 MON; Pulse Ox 100% ; mlc 20:27 BP 140 / 72 (auto/); mlc 20:42 Pulse 132 MON; Pulse Ox 100% ; mlc 20:42 BP 123 / 79 (auto/); mlc 20:57 Pulse 128 MON; Pulse Ox 100% ; mlc 20:57 BP 130 / 70 (auto/); mlc 21:12 Pulse 124 MON; Pulse Ox 100% ; mlc 21:12 BP 112 / 68 (auto/); mlc 21:24 Pulse 130 MON; Pulse Ox 100% ; mlc 21:42 BP 117 / 68 (auto/); mlc 21:42 Pulse 112 MON; Pulse Ox 99% ; mlc 22:12 BP 151 / 92 (auto/); mlc 22:12 Pulse 126 MON; Pulse Ox 100% ; mlc 22:27 BP 134 / 84 (auto/); mlc 22:27 Pulse 126 MON; Pulse Ox 99% ; mlc 14:29 Body Mass Index 31.19 (104.33 kg, 182.88 cm) ld5 12:28 O2 WASN'T READING gr2 Vitals: 12:28 Log In Time: July 07, 2016 at 12:28. RN notified that patient meets Red Flag gr2 criteria. ED Course: 12:28 Patient visited by Andrey Rayo. gr2 12:28 Isael Dumont is Private Physician. gr2 12:28 Dayanna Durant,RN is Primary Nurse. ml6 12:28 Patient moved to Waiting gr2 12:28 Patient moved to 11 ml6 12:31 Patient visited by Andrey Rayo. gr2 12:37 EKG done. (by ED staff). Reviewed by Ollie Jones MD. dem1 12:38 Patient visited by Dileep Chou. dem1 12:40 Ollie Jones MD is Attending Physician. pc 12:40 Triage Initiated ml6 12:47 The patient / caregiver is instructed regarding the plan of care and ED course. Patient pml has correct armband on for positive identification. Placed in gown. Bed in low position. Call light in reach. Side rails up X2. back tender insulation board on. Pulse ox on. NIBP on. 12:47 Inserted peripheral IV: 18gauge IV in right antecubital area and blood collected. pml Patient tolerated the procedure well. 12:48 Patient visited by Dayanna Durant,ELIZABETH. pml 12:53 Patient visited by Ollie Jones MD. pc 13:40 Patient visited by Dayanna Durant RN. pml 14:38 Patient visited by Zoila Palm RN. ld5 14:52 Patient visited by Zoila Palm RN. ld5 15:14 EKG done. (by ED staff). Reviewed by Ollie Jones MD. pml 15:28 Patient name changed from Arley\\S\\W\\S\\[place]\\S\\ to Arley\\S\\Ulysses\\S\\Steven. EDMS 15:29 [facility] Payment Agreement was scanned into [employer] and attached to record. lg 15:36 Kamala Felder is Hospitalizing Provider. pc 16:20 Patient visited by Dayanna Durant,ELIZABETH. pml 16:20 portable chest Returned. EDMS 18:14 Patient visited by Dayanna Durant,ELIZABETH. pml 18:32 Patient moved to Admit Hold kpj 19:00 Kaylee Landry RN is Primary Nurse. mlc 19:04 Patient visited by Trung aSntiago PCA. kb5 19:24 Patient moved to 11 ml3 19:44 Patient visited by Kaylee Landry RN. mlc 19:48 EKG-ADULT Returned. EDMS 19:49 ECG WITH READING ER PHYS Returned. EDMS 21:20 Patient visited by Love Lancaster. sew 21:22 Kamala Felder is Hospitalizing Provider. pc 21:26 Patient visited by Kaylee Landry RN. mlc 22:14 Patient moved to Admit Hold ml3 22:32 Patient visited by Trung Santiago PCA. kb5 22:39 Patient visited by Kaylee Landry RN. mlc 07/08 00:42 Primary Nurse role handed off by Dayanna Durant RN kb5 07:23 Primary Nurse role handed off by Kaylee Landry RN deg Administered Medications: 07/07 13:05 Drug: Metoprolol 5 mg [metoprolol 5 mg/5 mL intravenous solution (5 mL)] {Note: 126/100 pml HR 171.} Route: IVP; Site: right antecubital; 13:10 Follow up: BP 159 / 93; Pulse 138 bpm pml 13:09 Drug: Aspirin 324 mg [aspirin 81 mg chewable tablet (4 tabs)] Route: PO; pml 13:09 Drug: Metoprolol 50 mg [metoprolol tartrate 50 mg tablet (1 tabs)] Route: PO; pml 13:11 Drug: Metoprolol 5 mg [metoprolol 5 mg/5 mL intravenous solution (5 mL)] {Note: 138 HR pml 159/93.} Route: IVP; Site: right antecubital; 13:15 Follow up: BP 118 / 80; Pulse 118 bpm pml 13:17 Drug: Metoprolol 5 mg [metoprolol 5 mg/5 mL intravenous solution (5 mL)] {Note: 118/80 pml HR 118.} Route: IVP; Site: right antecubital; 13:18 Drug: pantoprazole 40 mg [pantoprazole 40 mg intravenous solution] Route: IV; Rate: pml bolus; Site: right antecubital; 13:55 Drug: Potassium Chloride 40 mEq [potassium chloride ER 10 mEq tablet,extended release pml (4 tabs)] Route: PO; 13:58 Drug: Metoprolol 5 mg [metoprolol 5 mg/5 mL intravenous solution (5 mL)] {Note: HR 130 pml BP 121/76.} Route: IVP; Site: right antecubital; 14:02 Follow up: BP 131 / 86; Pulse 109 bpm pml 14:03 Drug: Metoprolol 5 mg [metoprolol 5 mg/5 mL intravenous solution (5 mL)] Route: IVP; pml Site: right antecubital; 14:07 Follow up: BP 139 / 92; Pulse 106 bpm pml 14:08 Drug: Metoprolol 5 mg [metoprolol 5 mg/5 mL intravenous solution (5 mL)] Route: IVP; pml Site: left antecubital; 14:35 Drug: Metoprolol 5 mg [metoprolol 5 mg/5 mL intravenous solution (5 mL)] Route: IVP; ld5 Site: right antecubital; 14:42 Follow up: BP 104 / 73; Pulse 108 bpm ld5 16:19 Drug: Nitrostat 0.4 mg [Nitrostat 0.4 mg sublingual tablet (1 tabs)] Route: Sublingual; pml 16:25 Follow up: Response: Pain is resolved pml 16:21 Drug: Enoxaparin (1mg/kg) 100 mg [enoxaparin 100 mg/mL subcutaneous syringe (1 mL)] pml {Co-Signature: ld5 (Zoila Palm RN).} Route: Sub-Q; Site: left lower abdomen; 18:12 Drug: Nicotine 1 applic [nicotine 21 mg/24 hr daily transdermal patch (1 patches)] pml Route: Transdermal; Site: left upper arm; 18:12 Drug: Acetaminophen 650 mg [acetaminophen 325 mg tablet (2 tabs)] Route: PO; pml 19:43 Drug: Nitrostat 0.4 mg [Nitrostat 0.4 mg sublingual tablet (1 tabs)] Route: Sublingual; mlc 19:55 Follow up: BP 134 / 77; Pulse 122 bpm; Response: No significant change. mlc 20:29 Drug: HYDROcodone-acetaminophen 1 tabs [hydrocodone 7.5 mg-acetaminophen 325 mg tablet mlc (1 tabs)] Route: PO; 21:25 Follow up: Response: Pain is decreased mlc Order Results: Lab Order: B-Type Natiuretic Peptide; SPEC'M 07/07/16 12:42 Test: BRAIN NATRIURETIC PEPTIDE; Value: 213; Range: <100; Abnormal: Above high normal; Units: PG/ML; Status: F Lab Order: Basic Metabolic Profile; SPEC'M 07/07/16 12:42 Test: GLUCOSE, FASTING; Value: 169; Range: 70-105; Abnormal: Above high normal; Units: MG/DL; Status: F Test: BLOOD UREA NITROGEN; Value: 10; Range: 7-18; Units: MG/DL; Status: F Test: CREATININE FOR GFR; Value: 1.09; Range: 0.70-1.30; Units: MG/DL; Status: F Test: GLOMERULAR FILTRATION RATE; Value: > 60.0; Range: >60; Status: F Test: SODIUM LEVEL; Value: 138; Range: 136-145; Units: MEQ/L; Status: F Test: POTASSIUM SERUM; Value: 3.0; Range: 3.5-5.1; Abnormal: Below low normal; Units: MEQ/L; Status: F Test: CHLORIDE LEVEL; Value: 100; Range: 98-107; Units: MEQ/L; Status: F Test: CARBON DIOXIDE LEVEL; Value: 28; Range: 21-32; Units: MEQ/L; Status: F Test: ANION GAP; Value: 10; Range: 8-16; Units: MEQ/L; Status: F Test: CALCIUM LEVEL; Value: 9.2; Range: 8.5-10.1; Units: MG/DL; Status: F Test Note: ; Units are mL/min/1.73 m2 Chronic Kidney Disease Staging per NKF: Stage I & II GFR >=60 Normal to Mildly Decreased Stage III GFR 30-59 Moderately Decreased Stage IV GFR 15-29 Severely Decreased Stage V GFR <15 Very Little GFR Left ESRD GFR <15 on [employer] Lab Order: CBC with Diff; [facility] 07/07/16 12:42 Test: WHITE BLOOD COUNT; Value: 10.5; Range: 4.0-10.0; Abnormal: Above high normal; Units: K/mm3; Status: F Test: RED BLOOD COUNT; Value: 4.77; Range: 4.30-6.10; Units: M/mm3; Status: F Test: HEMOGLOBIN; Value: 16.0; Range: 14.0-18.0; Units: g/dl; Status: F Test: HEMATOCRIT; Value: 46.0; Range: 42.0-52.0; Units: %; Status: F Test: MEAN CORPUSCULAR VOLUME; Value: 96.4; Range: 80.0-96.0; Abnormal: Above high normal; Units: fl; Status: F Test: MEAN CORPUSCULAR HEMOGLOBIN; Value: 33.6; Range: 27.0-33.0; Abnormal: Above high normal; Units: pg; Status: F Test: MEAN CORPUSCULAR HGB CONC; Value: 34.8; Range: 32.0-36.5; Units: g/dl; Status: F Test: RED CELL DISTRIBUTION WIDTH; Value: 13.4; Range: 11.5-14.5; Units: %; Status: F Test: PLATELET COUNT, AUTOMATED; Value: 207; Range: 150-450; Units: k/mm3; Status: F Test: NEUTROPHILS %; Value: 60.5; Range: 36.0-66.0; Units: %; Status: F Test: LYMPH %; Value: 28.6; Range: 24.0-44.0; Units: %; Status: F Test: MONO %; Value: 6.2; Range: 0.0-5.0; Abnormal: Above high normal; Units: %; Status: F Test: EOS %; Value: 0.8; Range: 0.0-3.0; Units: %; Status: F Test: BASO %; Value: 1.6; Range: 0.0-1.0; Abnormal: Above high normal; Units: %; Status: F Test: LARGE UNSTAINED CELL %; Value: 2.3; Range: 0.0-4.0; Units: %; Status: F Test: NEUTROPHILS #; Value: 6.3; Range: 1.8-7.7; Units: K/mm3; Status: F Test: LYMPH #; Value: 3.2; Range: 1.5-4.5; Units: K/mm3; Status: F Test: MONO #; Value: 0.7; Range: 0.0-0.8; Units: K/mm3; Status: F Test: EOS #; Value: 0.1; Range: 0.0-0.50; Units: K/mm3; Status: F Test: BASO #; Value: 0.2; Range: 0.0-0.2; Units: K/mm3; Status: F Test: LARGE UNSTAINED CELL #; Value: 0.2; Range: 0.0-0.4; Units: K/mm3; Status: F Lab Order: Cardiac Injury Profile; [facility]07/07/16 12:42 Test: CPK CREATINE PHOSPHOKINASE; Value: 483; Range: 39-308; Abnormal: Above high normal; Units: U/L; Status: F Test: CK-MB VALUE MASS; Value: 9.0; Range: 0.0-3.6; Abnormal: Above high normal; Units: NG/ML; Status: F Test: MB/CK RELATIVE INDEX; Value: 1.86; Range: < OR =4; Status: F Test Note: ; DIAGNOSIS CRITERIA MMB ng/ml Relative Index (RI) NON-AMI < or = 5 N/A [place] ZONE > 5 < or = 4 AMI > 5 > 4 Lab Order: Partial Thromboplastin Time; [facility]07/07/16 12:42 Test: PARTIAL THROMBOPLASTIN TIME; Value: 29.0; Range: 26.6-37.1; Units: SECONDS; Status: F Lab Order: Prothrombin Time Profile\\E\\INR; 07/07/16 12:42 Test: PROTHROMBIN TIME; Value: 13.6; Range: 12.3-14.5; Units: SECONDS; Status: F Test: INR; Value: 1.03; Status: F Test Note: ; THERAPUTIC HUMAN INR VALUES INDICATIONS NORMAL RANGES PROPHYLAXIS/TREATMENT OF: VENOUS THROMBOSIS 2.0-3.0 PULMONARY EMBOLISM 2.0-3.0 PREVENTION OF SYSTEMIC EMBOLISM FROM: TISSUE HEART VALVES 2.0-3.0 ACUTE MYOCARDIAL INFARCTION 2.0-3.0 VALVULAR HEART DISEASE 2.0-3.0 ATRIAL FIBRILLATION 2.0-3.0 MECHANICAL VALVES(HIGH RISK) 2.5-3.5 RECURRENT MYOCARDIAL INFARCTION 2.5-3.5 Lab Order: Troponin; [facility]' 07/07/16 12:42 Test: TROPONIN I; Value: < 0.02; Range: < 0.10; Units: NG/ML; Status: F Test Note: ; Troponin I Reference Interval for [facility] LOCI: 99th Percentile= 0.00-0.045 ng/ml Risk Stratification: <= 0.10 ng/ml Decreased Risk for Adverse Clinical Events. 0.10-1.50 ng/ml Increased Risk for Adverse Clinical Events. Evaluation of additional criterion and/or repeat testing in 2-6 hours is suggested to rule out myocardial damage. >= 1.50 ng/ml Indicative of Myocardial Injury. Lab Order: TSH w/o Free T4; [facility] 07/07/16 12:42 Test: THYROID STIMULATING HORMONE; Value: 1.340; Range: 0.358-3.740; Units: uIU/ML; Status: F Lab Order: LIPASE; [facility] 07/07/16 12:42 Test: LIPASE; Value: 166; Range: 73-393; Units: U/L; Status: F Lab Order: LIVER PROFILE; [facility] 07/07/16 12:42 Test: AST/SGOT; Value: 46; Range: 15-37; Abnormal: Above high normal; Units: U/L; Status: F Test: ALT/SGPT; Value: 41; Range: 12-78; Units: U/L; Status: F Test: ALKALINE PHOSPHATASE; Value: 79; Range: 45-117; Units: U/L; Status: F Test: BILIRUBIN,TOTAL; Value: 0.8; Range: 0.2-1.0; Units: MG/DL; Status: F Test: BILIRUBIN,DIRECT; Value: 0.2; Range: 0.0-0.2; Units: MG/DL; Status: F Test: TOTAL PROTEIN; Value: 7.9; Range: 6.4-8.2; Units: GM/DL; Status: F Test: ALBUMIN; Value: 3.8; Range: 3.2-5.2; Units: GM/DL; Status: F Test: ALBUMIN/GLOBULIN RATIO; Value: 0.93; Range: 1.00-1.93; Abnormal: Below low normal; Status: F Lab Order: MAGNESIUM LEVEL; [facility] 07/07/16 12:42 Test: MAGNESIUM LEVEL; Value: 1.9; Range: 1.8-2.4; Units: MG/DL; Status: F Lab Order: CARDIAC MARKER PANEL; [facility] 07/07/16 19:51 Test: CPK CREATINE PHOSPHOKINASE; Value: 317; Range: 39-308; Abnormal: Above high normal; Units: U/L; Status: F Test: CK-MB VALUE MASS; Value: 5.7; Range: 0.0-3.6; Abnormal: Above high normal; Units: NG/ML; Status: F Test: MB/CK RELATIVE INDEX; Value: 1.79; Range: < OR =4; Status: F Test: TROPONIN I; Value: < 0.02; Range: < 0.10; Units: NG/ML; Status: F Test Note: ; DIAGNOSIS CRITERIA MMB ng/ml Relative Index (RI) NON-AMI < or = 5 N/A [place] ZONE > 5 < or = 4 AMI > 5 > 4 Lab Order: CBC WITH DIFFERENTIAL; [facility]07/08/16 08:21 Test: WHITE BLOOD COUNT; Value: 9.2; Range: 4.0-10.0; Units: K/mm3; Status: F Test: RED BLOOD COUNT; Value: 4.62; Range: 4.30-6.10; Units: M/mm3; Status: F Test: HEMOGLOBIN; Value: 15.8; Range: 14.0-18.0; Units: g/dl; Status: F Test: HEMATOCRIT; Value: 45.2; Range: 42.0-52.0; Units: %; Status: F Test: MEAN CORPUSCULAR VOLUME; Value: 97.7; Range: 80.0-96.0; Abnormal: Above high normal; Units: fl; Status: F Test: MEAN CORPUSCULAR HEMOGLOBIN; Value: 34.1; Range: 27.0-33.0; Abnormal: Above high normal; Units: pg; Status: F Test: MEAN CORPUSCULAR HGB CONC; Value: 34.9; Range: 32.0-36.5; Units: g/dl; Status: F Test: RED CELL DISTRIBUTION WIDTH; Value: 12.5; Range: 11.5-14.5; Units: %; Status: F Test: PLATELET COUNT, AUTOMATED; Value: 193; Range: 150-450; Units: k/mm3; Status: F Test: NEUTROPHILS %; Value: 58.6; Range: 36.0-66.0; Units: %; Status: F Test: LYMPH %; Value: 29.7; Range: 24.0-44.0; Units: %; Status: F Test: MONO %; Value: 6.1; Range: 0.0-5.0; Abnormal: Above high normal; Units: %; Status: F Test: EOS %; Value: 1.9; Range: 0.0-3.0; Units: %; Status: F Test: BASO %; Value: 0.8; Range: 0.0-1.0; Units: %; Status: F Test: LARGE UNSTAINED CELL %; Value: 2.9; Range: 0.0-4.0; Units: %; Status: F Test: NEUTROPHILS #; Value: 5.4; Range: 1.8-7.7; Units: K/mm3; Status: F Test: LYMPH #; Value: 2.7; Range: 1.5-4.5; Units: K/mm3; Status: F Test: MONO #; Value: 0.6; Range: 0.0-0.8; Units: K/mm3; Status: F Test: EOS #; Value: 0.2; Range: 0.0-0.50; Units: K/mm3; Status: F Test: BASO #; Value: 0.1; Range: 0.0-0.2; Units: K/mm3; Status: F Test: LARGE UNSTAINED CELL #; Value: 0.3; Range: 0.0-0.4; Units: K/mm3; Status: F Lab Order: COMPLETE COMPHRENSIVE METABOLI; SPEC'M 07/08/16 08:21 Test: GLUCOSE, FASTING; Value: 109; Range: 70-105; Abnormal: Above high normal; Units: MG/DL; Status: F Test: BLOOD UREA NITROGEN; Value: 15; Range: 7-18; Units: MG/DL; Status: F Test: CREATININE FOR GFR; Value: 0.92; Range: 0.70-1.30; Units: MG/DL; Status: F Test: GLOMERULAR FILTRATION RATE; Value: > 60.0; Range: >60; Status: F Test: SODIUM LEVEL; Value: 141; Range: 136-145; Units: MEQ/L; Status: F Test: POTASSIUM SERUM; Value: 4.1; Range: 3.5-5.1; Abnormal: Delta; Units: MEQ/L; Status: F Test: CHLORIDE LEVEL; Value: 104; Range: 98-107; Units: MEQ/L; Status: F Test: CARBON DIOXIDE LEVEL; Value: 29; Range: 21-32; Units: MEQ/L; Status: F Test: ANION GAP; Value: 8; Range: 8-16; Units: MEQ/L; Status: F Test: CALCIUM LEVEL; Value: 9.0; Range: 8.5-10.1; Units: MG/DL; Status: F Test: AST/SGOT; Value: 31; Range: 15-37; Units: U/L; Status: F Test: ALT/SGPT; Value: 35; Range: 12-78; Units: U/L; Status: F Test: ALKALINE PHOSPHATASE; Value: 70; Range: 45-117; Units: U/L; Status: F Test: BILIRUBIN,TOTAL; Value: 0.8; Range: 0.2-1.0; Units: MG/DL; Status: F Test: TOTAL PROTEIN; Value: 6.8; Range: 6.4-8.2; Units: GM/DL; Status: F Test: ALBUMIN; Value: 3.4; Range: 3.2-5.2; Units: GM/DL; Status: F Test: ALBUMIN/GLOBULIN RATIO; Value: 1.00; Range: 1.00-1.93; Status: F Test Note: ; Units are mL/min/1.73 m2 Chronic Kidney Disease Staging per NKF: Stage I & II GFR >=60 Normal to Mildly Decreased Stage III GFR 30-59 Moderately Decreased Stage IV GFR 15-29 Severely Decreased Stage V GFR <15 Very Little GFR Left ESRD GFR <15 on [employer] Lab Order: MAGNESIUM LEVEL; [facility] 07/08/16 08:21 Test: MAGNESIUM LEVEL; Value: 2.0; Range: 1.8-2.4; Units: MG/DL; Status: F Lab Order: PROTHROMBIN TIME PROFILE\\E\\INR; [facility]07/08/16 08:21 Test: PROTHROMBIN TIME; Value: 14.7; Range: 12.3-14.5; Abnormal: Above high normal; Units: SECONDS; Status: F Test: INR; Value: 1.14; Status: F Test Note: ; THERAPUTIC HUMAN INR VALUES INDICATIONS NORMAL RANGES PROPHYLAXIS/TREATMENT OF: VENOUS THROMBOSIS 2.0-3.0 PULMONARY EMBOLISM 2.0-3.0 PREVENTION OF SYSTEMIC EMBOLISM FROM: TISSUE HEART VALVES 2.0-3.0 ACUTE MYOCARDIAL INFARCTION 2.0-3.0 VALVULAR HEART DISEASE 2.0-3.0 ATRIAL FIBRILLATION 2.0-3.0 MECHANICAL VALVES(HIGH RISK) 2.5-3.5 RECURRENT MYOCARDIAL INFARCTION 2.5-3.5 Lab Order: CARDIAC MARKER PANEL; [facility]07/08/16 00:05 Test: CPK CREATINE PHOSPHOKINASE; Value: 258; Range: 39-308; Units: U/L; Status: F Test: CK-MB VALUE MASS; Value: 6.3; Range: 0.0-3.6; Abnormal: Above high normal; Units: NG/ML; Status: F Test: MB/CK RELATIVE INDEX; Value: 2.44; Range: < OR =4; Status: F Test: TROPONIN I; Value: < 0.02; Range: < 0.10; Units: NG/ML; Status: F Test Note: ; DIAGNOSIS CRITERIA MMB ng/ml Relative Index (RI) NON-AMI < or = 5 N/A [place] > 5 < or = 4 AMI > 5 > 4 Lab Order: CARDIAC MARKER PANEL; [facility] 07/08/16 08:21 Test: CPK CREATINE PHOSPHOKINASE; Value: 198; Range: 39-308; Units: U/L; Status: F Test: CK-MB VALUE MASS; Value: 4.9; Range: 0.0-3.6; Abnormal: Above high normal; Units: NG/ML; Status: F Test: MB/CK RELATIVE INDEX; Value: 2.47; Range: < OR =4; Status: F Test: TROPONIN I; Value: < 0.02; Range: < 0.10; Units: NG/ML; Status: F Test Note: ; DIAGNOSIS CRITERIA MMB ng/ml Relative Index (RI) NON-AMI < or = 5 N/A [place] > 5 < or = 4 AMI > 5 > 4 Radiology Order: EKG-ADULT Test: EKG-ADULT REASON FOR EXAMINATION: Chest Pain; Stationary ECG Study; [facility]; ; Test Date: 2016-07-07; Pat Name: ARLEY HARRIS Department:; Room: -; 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 RBBB; ; Electronically Signed On 07-07-2016 19:17:33 EST by Ollie Jones; Radiology Order: portable chest Test: portable chest REASON FOR EXAMINATION: Chest Pain; Portable chest x-ray: Sitting AP view.; ; History: Chest pain.; ; Findings: The lungs are well inflated and clear. Pleural angles are sharp.; Heart is not enlarged. EKG electrodes are seen. An azygos lobe is noted; incidentally as before. 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 RBBB; BORDERLINE LEFT AXIS DEVIATION; RATE IMPROVED FROM 07/07/15 12:37; Electronically Signed On 07-07-2016 19:20:48 EST by Ollie Jones; Outcome: 15:37 Decision to Hospitalize by Provider. pc 21:22 Decision to Hospitalize by Provider. pc 07/08 17:54 Patient left the ED. deg Signatures: Dispatcher [employer] EDCT Ollie Jones MD MD pc Murray, Denise, Etl Lead Unit deg Salome Putnam, RN RN Magaly Maldonado, Frankie Reg lg Saji De Santiago, Etl Lead Unit ml3 Trung Santiago, LUNCH TRUCK OPERATOR LUNCH TRUCK OPERATOR kb5 Saeid Laughlin RN RN ml6 Zoila PalmRN RN ld5 Dayanna DurantRN RN Dileep Cuevas dem1 Love Lancaster Gainslee gr2 Kaylee Landry,RN RN mlc Zoila Palm RN ld5 Corrections: (The following items were deleted from the chart) 07/07 12:40 12:37 EKG done. (by ED staff). Reviewed by Elena Lake MD dem1 dem1 12:58 12:43 PSHx: ACDFI; ml6 ml6 07/08 01:03 07/07 22:39 General: report given to Carmen Farley, ELIZABETH (enriquez nurse). mlc mlc MTDD
[2016-07-08 18:36] LABS: INR 1.11
[2016-07-09] VITALS (7 sets, daily range): BP systolic 109–138; BP diastolic 60–84
[2016-07-09] MEDS: METOPROLOL TART 50 MG TAB PO SCH ×5 (00:25→23:30)
[2016-07-09] MEDS: OXAZEPAM 15 MG CAP PO SCH ×2 (05:45→14:42)
[2016-07-09] MEDS: ENOXAPARIN 120 MG/0.8 ML SYR (J1650) SC SCH (05:47)
[2016-07-09] MEDS: ANEXSIA, NORCO 7.5MG/325MG TABLET(HYDROCODONE/APAP) PO PRN ×2 (05:49→20:12)
[2016-07-09 06:00] LABS: BASO # 0.1 K/mm3 (0.0-0.2); BASO % 1.2 % (0.0-1.0); EOS # 0.1 K/mm3 (0.0-0.50); LARGE UNSTAINED CELL # 0.2 K/mm3 (0.0-0.4); LYMPH # 3.2 K/mm3 (1.5-4.5); LYMPH % 41.1 % (24.0-44.0); MEAN CORPUSCULAR HEMOGLOBIN 33.5 pg (27.0-33.0); MEAN CORPUSCULAR HGB CONC 34.4 g/dl (32.0-36.5); MEAN CORPUSCULAR VOLUME 97.3 fl (80.0-96.0); MONO # 0.5 K/mm3 (0.0-0.8); MONO % 6.9 % (0.0-5.0); NEUTROPHILS # 3.3 K/mm3 (1.8-7.7); NEUTROPHILS % 45.7 % (36.0-66.0); PLATELET COUNT, AUTOMATED 188 k/mm3 (150-450); RED CELL DISTRIBUTION WIDTH 13.5 % (11.5-14.5); WHITE BLOOD COUNT 7.1 K/mm3 (4.0-10.0)
[2016-07-09 06:05] LABS: INR 1.12
[2016-07-09 06:17] LABS: ALBUMIN 3.2 GM/DL (3.2-5.2); ALBUMIN/GLOBULIN RATIO 0.84 (1.00-1.93); ALKALINE PHOSPHATASE 59 U/L (45-117); ALT/SGPT 30 U/L (12-78); ANION GAP 8 MEQ/L (8-16); AST/SGOT 21 U/L (15-37); BILIRUBIN,TOTAL 0.4 MG/DL (0.2-1.0); BLOOD UREA NITROGEN 16 MG/DL (7-18); CALCIUM LEVEL 8.5 MG/DL (8.5-10.1); CARBON DIOXIDE LEVEL 29 MEQ/L (21-32); CHLORIDE LEVEL 103 MEQ/L (98-107); CREATININE FOR GFR 0.95 MG/DL (0.70-1.30); GLOMERULAR FILTRATION RATE > 60.0 (>60); GLUCOSE, FASTING 99 MG/DL (70-105); MAGNESIUM LEVEL 1.8 MG/DL (1.8-2.4); POTASSIUM SERUM 3.2 MEQ/L (3.5-5.1); SODIUM LEVEL 140 MEQ/L (136-145)
[2016-07-09] MEDS: NICOTINE 21MG/24HR 1 EA TRANSDERMAL TD SCH (08:38)
[2016-07-09] MEDS: OMEPRAZOLE 20 MG CAP PO SCH ×2 (08:39→20:12)
[2016-07-09] MEDS: LORazepam 2 MG/ML VIAL (J2060) IV PRN ×2 (10:07→12:23)
--- NOTE | 2016-07-09 14:29 | IPNPDOC ---
Date of Service/Time 07/09/16 Progress Note SUBJECTIVE: The patient denies any chest pain at this time until his shortness of breath has resolved is no specific complaints at this time OBJECTIVE: PHYSICAL EXAMINATION: VITAL SIGNS: Improved heart rate control otherwise Please see below. GENERAL: Disheveled middle-aged man HEENT: Pupil is round reactive to light he has moist mucous membranes elevation central venous pressure CARDIOVASCULAR: Is 1 S2 irregularly irregular mildly tachycardic. RESPIRATORY: Clear to auscultation. ABDOMINAL: Bowel sounds present abdomen soft and nontender EXTREMITIES: Clubbing cyanosis or edema mild tremor NEUROLOGICAL: Nonfocal LABORATORY DATA: Hypokalemia hypomagnesemia repleted otherwise Please see below. IMAGING: Chest x-ray revealed no active disease Echocardiogram: Ordered not completed as of yet. DVT prophylaxis ordered?: Therapeutic Lovenox ASSESSMENT AND PLAN: This is a 45-year-old man with newly discovered atrial fibrillation with rapid ventricular response in the setting of alcohol abuse and tobacco abuse. Problem #1 new onset atrial fibrillation: Likely long-standing given the patient 's history of symptoms, I spoke with Dr. Deluca the patient is currently on Cardizem and metoprolol and his heart rate is much better controlled at this time. A TSH was within normal limits and echocardiogram has been ordered, the patient is also been started on therapeutic Lovenox for anticoagulation. I will discuss further with Dr. Deluca tomorrow potentially transitioning the patient to less frequent dosing of calcium channel marisa and beta marisa as well as starting him on oral anticoagulation for atrial fibrillation. I suspect that his atrial fibrillation is related to possibly untreated hypertension Problem #2 tobacco abuse: Cessation counseling offered the patient is using a nicotine patch at present time. Problem #3 alcohol abuse: There is concern for alcohol withdrawal at the present time the patient is currently receiving Cerebyx every 8 hours standing which is controlling his symptoms fairly well with me and to wean this down tomorrow is also being started on thiamine and folic acid and a multivitamin Problem #4 gastroesophageal reflux disease: The patient has long-standing chest pain related to gastroesophageal reflux disease he is on omeprazole 20 mg twice a day which controls his symptoms. He has had negative cardiac enzymes chest pain does not appear to be cardiac in etiology Problem #5 COPD: The patient is at his baseline respiratory status no active decompensation. Problem #6 chronic back pain: The patient is on [place] DISPOSITION: We'll continue to monitor patient for alcohol withdrawal symptoms continue to adjust medications for heart rate control and decide on anticoagulation the patient may be able to be discharged the next 24-48 hours pending his improvement. VS, I&O, 24H, Fishbone VS, I&O, 24H, Fishbone Vital Signs Date Time Temp Pulse Resp B/P Pulse Ox O2 Delivery O2 Flow Rate FiO2 07/09/16 14:07 89 07/09/16 12:17 120/78 07/09/16 12:00 97.8 22 99 Room Air 07/08/16 12:00 2.0 I&O- Last 24 Hours up to 6 AM 07/09/16 06:00 Intake Total 1320 ml Output Total 700 ml Balance 620 ml Laboratory Tests 2 07/08/16 18:22: Activated Partial Thromboplast Time 33.0, Prothromb Time International Ratio 1.11, Prothrombin Time 14.4 07/09/16 05:45: Prothromb Time International Ratio 1.12, Prothrombin Time 14.5, Blood Urea Nitrogen 16, Creatinine 0.95, Sodium Level 140, Potassium Level 3.2#L, Chloride Level 103, Carbon Dioxide Level 29, Calcium Level 8.5, Aspartate Amino Transf ( AST/SGOT) 21, Alanine Aminotransferase (ALT/SGPT) 30, Alkaline Phosphatase 59, Total Bilirubin 0.4, Total Protein 7.0, Albumin 3.2, Albumin/Globulin Ratio 0.84L, Anion Gap 8, White Blood Count 7.1, Red Blood Count 4.55, Hemoglobin 15.2 , Hematocrit 44.3, Mean Corpuscular Volume 97.3H, Mean Corpuscular Hemoglobin 33.5H, Mean Corpuscular Hemoglobin Concent 34.4, Red Cell Distribution Width 13.5, Platelet Count 188, Neutrophils (%) (Auto) 45.7, Lymphocytes (%) (Auto) 41.1, Monocytes (%) (Auto) 6.9H, Eosinophils (%) (Auto) 2.0, Basophils (%) (Auto ) 1.2H, Neutrophils # (Auto) 3.3, Lymphocytes # (Auto) 3.2, Monocytes # (Auto) 0.5, Eosinophils # (Auto) 0.1, Basophils # (Auto) 0.1, Glomerular Filtration Rate > 60.0, Large Unclassified Cells # 0.2, Large Unclassified Cells % 3.0, Magnesium Level 1.8 Laboratory Tests 07/09/16 05:45 Calcium Level 8.5, Aspartate Amino Transf (AST/SGOT) 21, Alanine Aminotransferase (ALT/SGPT) 30, Alkaline Phosphatase 59, Total Bilirubin 0.4, Total Protein 7.0, Albumin 3.2, Red Blood Count 4.55, Mean Corpuscular Volume 97.3 H, Mean Corpuscular Hemoglobin 33.5 H, Mean Corpuscular Hemoglobin Concent 34.4, Red Cell Distribution Width 13.5, Neutrophils (%) (Auto) 45.7, Lymphocytes (%) (Auto) 41.1, Monocytes (%) (Auto) 6.9 H, Eosinophils (%) (Auto) 2.0, Basophils (%) (Auto) 1.2 H, Neutrophils # (Auto) 3.3, Lymphocytes # (Auto) 3.2, Monocytes # (Auto) 0.5, Eosinophils # (Auto) 0.1, Basophils # (Auto) 0.1 RIVER FULTON MD Jul 09, 2016 14:29
[2016-07-09] MEDS: MULTIVITAMINS/MINERALS THERAP 1 TAB PO SCH (14:41)
[2016-07-09] MEDS: THIAMINE 100 MG TAB PO SCH (14:41)
[2016-07-09] MEDS: FOLIC ACID 1 MG TAB PO SCH (14:42)
[2016-07-09] MEDS ORDERED: MAG SULF 1GM/100ML (MAG RUN) 1 GM in APPROPRIATE DILUENT 1 EA IV ONE (15:00)
[2016-07-09] MEDS ORDERED: POTASSIUM CHLORIDE 10 MEQ SR TABLET PO ONE (15:00)
[2016-07-09] MEDS: ENOXAPARIN 100MG/1ML SYRINGE (J1650) SC SCH (17:18)
[2016-07-09] MEDS: ALPRAZolam 0.5 MG TAB PO SCH ×2 (17:18→20:12)
--- NOTE | 2016-07-09 19:14 | ECHO ---
DATE OF PROCEDURE: 07/09/2016 REFERRING PHYSICIAN: Kamala Felder MD INDICATION: Atrial fibrillation. HEIGHTL: 183 cm WEIGHT: 116 kg. DIMENSIONS: IVS: 1.1 LV: 4.1 LVPW 1.1 LA: 3.5 Aorta 3.2 FINDINGS: The study is of acceptable technical quality. During the study the patient was in atrial fibrillation with rapid ventricular response and heart rate fluctuating between 100 and 120 beats per minute. Left ventricle is of normal size. There is a global hypokinesis that is approximately moderate I estimate left ventricular ejection fraction (LVEF) approximately 40%. Right ventricle is normal size. It is mildly hypokinetic. Both atria are approximately moderately enlarged. Aortic, mitral and tricuspid valves appear normal. Pulmonic valve was not well seen. No pericardial effusion but pericardial fat pad is appreciated. Inferior vena cava is normal caliber. Aortic root is normal. Aortic arch and abdominal aorta were not visualized. Doppler interrogation reveals no significant aortic valve disease. There is mild mitral insufficiency and trace tricuspid insufficiency calculated pulmonary artery pressure is within normal limits based on fair quality of TR jet. Evaluation of diastolic function is inconclusive due to presence of atrial fibrillation. CONCLUSIONS: 1. Study is of good technical quality. 2. Normal left ventricle (LV) size with approximately moderate left ventricular systolic dysfunction. 3. No significant valvular disease. 4. Likely normal central venous pressure. 5. Unable to estimate pulmonary artery pressure under COMMENTS: Subacute bacterial endocarditis (SBE) prophylaxis is not recommended. 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 MTDD
--- NOTE | 2016-07-09 19:30 | IPNPDOC ---
Assessment/Plan Date Seen The patient was seen on 07/08/16. Problems Problems: (1) Atrial fibrillation with RVR Status: Acute Problem Text: rate still not well controlled. managed as per cardiology. (2) Alcohol dependence Status: Chronic (3) GERD (gastroesophageal reflux disease) Status: Chronic (4) Tobacco dependence Status: Chronic (5) Chronic bronchitis Status: Chronic Problem Text: will continue with nebulizations (6) Hypertension Status: Chronic Plan / VTE VTE Prophylaxis Ordered?: Yes Subjective Review of Systems CC/HPI The patient is a 45-year-old male admitted with a reason for visit of Acute On Chronic Heart Failure. Events since last encounter patient denied any complaints this am , denied any chest pain or SOB , denied any palpitation Objective Physical Examination General Exam: Positive: Alert, No Acute Distress Eye Exam: Positive: Conjunctiva & lids normal, EOMI, PERRLA, Negative: Sclera icteric ENT Exam: Positive: Atraumatic, Mucous membr. moist/pink, Pharynx Normal Neck Exam: Positive: Supple, Negative: JVD, thyromegaly Chest Exam: Positive: Rhonchi, Wheezing Heart Exam: Positive: Irregular Rhythm, Normal S1, Normal S2, Tachycardic Telemetry: Positive: Atrial fibrillation Abdomen Exam: Positive: Normal bowel sounds, Soft, Negative: Hepatospenomegaly, Tenderness Extremity Exam: Positive: Normal pulses, Negative: Clubbing, Cyanosis, Edema Vital Signs/I&O Vital Signs Date Time Temp Pulse Resp B/P Pulse Ox O2 Delivery O2 Flow Rate FiO2 07/09/16 17:19 106 120/62 07/09/16 16:00 97.6 20 99 Room Air 07/08/16 12:00 2.0 I&O- Last 24 Hours up to 6 AM 07/09/16 06:00 Intake Total 1320 ml Output Total 700 ml Balance 620 ml Laboratory Data Labs 24H Laboratory Tests 2 07/09/16 05:45: Blood Urea Nitrogen 16, Creatinine 0.95, Sodium Level 140, Potassium Level 3.2#L , Chloride Level 103, Carbon Dioxide Level 29, Calcium Level 8.5, Aspartate Amino Transf (AST/SGOT) 21, Alanine Aminotransferase (ALT/SGPT) 30, Alkaline Phosphatase 59, Total Bilirubin 0.4, Total Protein 7.0, Albumin 3.2, Albumin/ Globulin Ratio 0.84L, Anion Gap 8, White Blood Count 7.1, Red Blood Count 4.55, Hemoglobin 15.2, Hematocrit 44.3, Mean Corpuscular Volume 97.3H, Mean Corpuscular Hemoglobin 33.5H, Mean Corpuscular Hemoglobin Concent 34.4, Red Cell Distribution Width 13.5, Platelet Count 188, Neutrophils (%) (Auto) 45.7, Lymphocytes (%) (Auto) 41.1, Monocytes (%) (Auto) 6.9H, Eosinophils (%) (Auto) 2.0, Basophils (%) (Auto) 1.2H, Neutrophils # (Auto) 3.3, Lymphocytes # (Auto) 3.2, Monocytes # (Auto) 0.5, Eosinophils # (Auto) 0.1, Basophils # (Auto) 0.1, Glomerular Filtration Rate > 60.0, Large Unclassified Cells # 0.2, Large Unclassified Cells % 3.0, Magnesium Level 1.8, Prothromb Time International Ratio 1.12, Prothrombin Time 14.5 CBC/BMP Laboratory Tests 07/09/16 05:45 Calcium Level 8.5, Aspartate Amino Transf (AST/SGOT) 21, Alanine Aminotransferase (ALT/SGPT) 30, Alkaline Phosphatase 59, Total Bilirubin 0.4, Total Protein 7.0, Albumin 3.2, Red Blood Count 4.55, Mean Corpuscular Volume 97.3 H, Mean Corpuscular Hemoglobin 33.5 H, Mean Corpuscular Hemoglobin Concent 34.4, Red Cell Distribution Width 13.5, Neutrophils (%) (Auto) 45.7, Lymphocytes (%) (Auto) 41.1, Monocytes (%) (Auto) 6.9 H, Eosinophils (%) (Auto) 2.0, Basophils (%) (Auto) 1.2 H, Neutrophils # (Auto) 3.3, Lymphocytes # (Auto) 3.2, Monocytes # (Auto) 0.5, Eosinophils # (Auto) 0.1, Basophils # (Auto) 0.1 VERNON CHRISTINE MD Jul 09, 2016 19:30
[2016-07-09] MEDS ORDERED: OXAZEPAM 10 MG CAP PO PRN (20:00)
[2016-07-10 04:00] VITALS: BP 111/80
[2016-07-10] MEDS: METOPROLOL TART 50 MG TAB PO SCH ×3 (05:54→17:47)
[2016-07-10] MEDS: ANEXSIA, NORCO 7.5MG/325MG TABLET(HYDROCODONE/APAP) PO PRN ×3 (05:55→20:32)
[2016-07-10] MEDS: ENOXAPARIN 100MG/1ML SYRINGE (J1650) SC SCH (05:55)
[2016-07-10 06:07] LABS: BASO % 0.6 % (0.0-1.0); EOS # 0.2 K/mm3 (0.0-0.50); EOS % 3.2 % (0.0-3.0); LARGE UNSTAINED CELL # 0.2 K/mm3 (0.0-0.4); LARGE UNSTAINED CELL % 3.5 % (0.0-4.0); LYMPH # 2.4 K/mm3 (1.5-4.5); LYMPH % 45.7 % (24.0-44.0); MEAN CORPUSCULAR HEMOGLOBIN 33.8 pg (27.0-33.0); MEAN CORPUSCULAR HGB CONC 34.1 g/dl (32.0-36.5); MEAN CORPUSCULAR VOLUME 99.1 fl (80.0-96.0); MONO # 0.4 K/mm3 (0.0-0.8); MONO % 6.8 % (0.0-5.0); NEUTROPHILS # 2.1 K/mm3 (1.8-7.7); NEUTROPHILS % 40.1 % (36.0-66.0); PLATELET COUNT, AUTOMATED 172 k/mm3 (150-450); RED CELL DISTRIBUTION WIDTH 12.4 % (11.5-14.5); WHITE BLOOD COUNT 5.1 K/mm3 (4.0-10.0)
[2016-07-10 06:13] LABS: INR 1.1
[2016-07-10 06:33] LABS: ALBUMIN 3.2 GM/DL (3.2-5.2); ALBUMIN/GLOBULIN RATIO 0.97 (1.00-1.93); ALKALINE PHOSPHATASE 58 U/L (45-117); ALT/SGPT 28 U/L (12-78); ANION GAP 9 MEQ/L (8-16); AST/SGOT 18 U/L (15-37); BILIRUBIN,TOTAL 0.5 MG/DL (0.2-1.0); BLOOD UREA NITROGEN 16 MG/DL (7-18); CALCIUM LEVEL 8.4 MG/DL (8.5-10.1); CARBON DIOXIDE LEVEL 28 MEQ/L (21-32); CHLORIDE LEVEL 107 MEQ/L (98-107); CREATININE FOR GFR 0.95 MG/DL (0.70-1.30); GLOMERULAR FILTRATION RATE > 60.0 (>60); GLUCOSE, FASTING 97 MG/DL (70-105); MAGNESIUM LEVEL 2.1 MG/DL (1.8-2.4); POTASSIUM SERUM 3.5 MEQ/L (3.5-5.1); SODIUM LEVEL 144 MEQ/L (136-145); TOTAL PROTEIN 6.5 GM/DL (6.4-8.2)
[2016-07-10 08:00] VITALS: BP 112/87
[2016-07-10] MEDS: NICOTINE 21MG/24HR 1 EA TRANSDERMAL TD SCH (09:14)
[2016-07-10] MEDS: ALPRAZolam 0.5 MG TAB PO SCH ×4 (09:15→20:32)
[2016-07-10] MEDS: OMEPRAZOLE 20 MG CAP PO SCH ×2 (09:15→20:32)
[2016-07-10] MEDS: THIAMINE 100 MG TAB PO SCH (09:15)
[2016-07-10] MEDS: FOLIC ACID 1 MG TAB PO SCH (09:15)
[2016-07-10] MEDS: MULTIVITAMINS/MINERALS THERAP 1 TAB PO SCH (09:15)
--- NOTE | 2016-07-10 11:44 | IPNPDOC ---
[facility] Cardiology Progress Note Date of Service/Time The patient was seen on 07/10/16 at 11:30. Cardiology Progress Note Mr. Harris is a 45 y/o male who initially presented with mid sternal chest pressure, experiencing rapid heart rate, increased SOB of many months duration that had progressively gotten worse, he was found in the ED to have new onset Atrial fibrillation with rapid ventricular response, with a rate in the 190's. He was given metoprolol 50 mg Q6H and responded favorably. OBJECTIVE: PHYSICAL EXAMINATION: VITAL SIGNS: Please see below. GENERAL APPEARANCE: patient is laying in bed, appears comfortable, orientated and alert HEENT: NCAT, nares patent b/l, tongue midline, moist mucus membranes, PERRLA LUNGS: CTA b/l, cannot appreciate any crackles, wheezing or rhonchi, good air expansion HEART: normal s1 and s2, currently on telemetry in atrial fibrillation, heart rate 101 BPM, no murmurs or gallops appreciated. Rate has been 87-101 this morning. ABDOMEN: NABSx4, non-distended, no organomegaly, non-tender SKIN: intact NEUROLOGICAL: no focal deficit appreciated PSYCHIATRIC: affect is normal, appears a bit anxious but otherwise appropriate LABORATORY WORK: Please see below. ASSESSMENT AND PLAN: Mr. Harris seems to be doing well this AM at bedside exam, he says that his chest pressure/discomfort is better since admission, he can still feel his heart palpitating at times but says his SOB is also better. On telemetry he did have some 3 second pauses, his ECHO exam did demonstrate a low ejection fraction of 40%, in light of this we will stop his Cardizam 30 mg q8h since this is contraindicated in patients with systolic dysfunction and monitor his heart rate. Unfortunately until he can cease or dramatically decrease his very high level of chronic alcohol use, his tachycardia may always be a problem for him. We had a leo discussion about this and the patient admitted he would try to stop drinking as excessively as he had been doing in the past. No further medication changes at this time, we will continue to monitor his HR. Addendum Bhargavi COFFEY: Agree with above. Considering LV dysfunction and pauses at night (less then 3 seconds) will d/c cardizem. If needed will add digoxin or amiodarone. Vital Signs/I&O VS/I&O Vital Signs Date Time Temp Pulse Resp B/P Pulse Ox O2 Delivery O2 Flow Rate FiO2 07/10/16 08:00 96.6 79 20 112/87 97 Room Air 07/08/16 12:00 2.0 I&O- Last 24 Hours up to 6 AM 07/10/16 06:00 Intake Total 2100 ml Output Total 1050 ml Balance 1050 ml Laboratory Data 24H LABS Laboratory Tests 2 07/10/16 05:48: Blood Urea Nitrogen 16, Creatinine 0.95, Sodium Level 144, Potassium Level 3.5, Chloride Level 107, Carbon Dioxide Level 28, Calcium Level 8.4L, Aspartate Amino Transf (AST/SGOT) 18, Alanine Aminotransferase (ALT/SGPT) 28, Alkaline Phosphatase 58, Total Bilirubin 0.5, Total Protein 6.5, Albumin 3.2, Albumin/ Globulin Ratio 0.97L, Anion Gap 9, White Blood Count 5.1, Red Blood Count 4.33, Hemoglobin 14.6, Hematocrit 42.9, Mean Corpuscular Volume 99.1H, Mean Corpuscular Hemoglobin 33.8H, Mean Corpuscular Hemoglobin Concent 34.1, Red Cell Distribution Width 12.4, Platelet Count 172, Neutrophils (%) (Auto) 40.1, Lymphocytes (%) (Auto) 45.7H, Monocytes (%) (Auto) 6.8H, Eosinophils (%) (Auto) 3.2H, Basophils (%) (Auto) 0.6, Neutrophils # (Auto) 2.1, Lymphocytes # (Auto) 2.4, Monocytes # (Auto) 0.4, Eosinophils # (Auto) 0.2, Basophils # (Auto) 0.0, Glomerular Filtration Rate > 60.0, Large Unclassified Cells # 0.2, Large Unclassified Cells % 3.5, Magnesium Level 2.1, Prothromb Time International Ratio 1.10, Prothrombin Time 14.3 CBC/BMP Laboratory Tests 07/10/16 05:48 Calcium Level 8.4 L, Aspartate Amino Transf (AST/SGOT) 18, Alanine Aminotransferase (ALT/SGPT) 28, Alkaline Phosphatase 58, Total Bilirubin 0.5, Total Protein 6.5, Albumin 3.2, Red Blood Count 4.33, Mean Corpuscular Volume 99.1 H, Mean Corpuscular Hemoglobin 33.8 H, Mean Corpuscular Hemoglobin Concent 34.1, Red Cell Distribution Width 12.4, Neutrophils (%) (Auto) 40.1, Lymphocytes (%) (Auto) 45.7 H, Monocytes (%) (Auto) 6.8 H, Eosinophils (%) (Auto ) 3.2 H, Basophils (%) (Auto) 0.6, Neutrophils # (Auto) 2.1, Lymphocytes # (Auto ) 2.4, Monocytes # (Auto) 0.4, Eosinophils # (Auto) 0.2, Basophils # (Auto) 0.0 GME ATTESTATION GME ATTESTATION My preceptor for this patient encounter was physically present in the building during the encounter and was fully available. As needed, all aspects of the patient interview, examination, medical decision making process, and medical care plan development were reviewed and approved by the preceptor. Preceptor is aware and concurs with the plan as stated in the body of this note and will attest to such by his/her cosignature. SHENA CAMILO DO Jul 10, 2016 11:44 Nathlaie Deluca MD Jul 10, 2016 20:50
[2016-07-10 11:47] VITALS: BP 131/89
[2016-07-10] MEDS ORDERED: POTASSIUM CHLORIDE 10 MEQ SR TABLET PO ONE (13:00)
[2016-07-10] MEDS ORDERED: XARE20TA PO (13:02)
--- NOTE | 2016-07-10 13:04 | IPNPDOC ---
Date of Service/Time 07/10/16 Progress Note SUBJECTIVE: The patient at this time denies any chest pain shortness of breath fevers chills nausea vomiting or diarrhea she does complain of chronic back pain and chronic neck pain OBJECTIVE: PHYSICAL EXAMINATION: VITAL SIGNS: Improved heart rate control otherwise Please see below. GENERAL: Disheveled middle-aged man sitting up eating breakfast HEENT: Pupil is round reactive to light he has moist mucous membranes elevation central venous pressure CARDIOVASCULAR: S1 S2 irregularly irregular not tachycardic. RESPIRATORY: Clear to auscultation. ABDOMINAL: Bowel sounds present abdomen soft and nontender EXTREMITIES: Clubbing cyanosis or edema mild tremor NEUROLOGICAL: Nonfocal LABORATORY DATA: Hypokalemia repleted otherwise Please see below. IMAGING: Chest x-ray revealed no active disease Echocardiogram: Normal LV size and moderate LV systolic dysfunction EF approximately 40% no significant valvular disease DVT prophylaxis ordered?: Therapeutic Lovenox ASSESSMENT AND PLAN: This is a 45-year-old man with newly discovered atrial fibrillation with rapid ventricular response in the setting of alcohol abuse and tobacco abuse. Problem #1 new onset atrial fibrillation: Likely long-standing given the patient 's history of symptoms. I did discuss with Dr. Deluca at length this morning and we will start the patient on anticoagulation given that he does have some systolic dysfunction and likely hypertension as well. A TSH was within normal limits, his atrial fibrillation appears to be nonvalvular. The patient will be started on Xarelto a prescription will be sent to his pharmacy in order to attempt to obtain a prior authorization will currently adjusting his rate controlling agents in order to better optimize him and avoid any further pauses as he had overnight. Problem #2 tobacco abuse: Cessation counseling offered the patient is using a nicotine patch at present time. Problem #3 alcohol abuse: My concern for alcohol withdrawal is actually quite low at this time is tachycardic but otherwise he is not hypertensive diaphoretic tremulousness or anxious he is not having any diarrhea no visual or auditory hallucinations there is no GI upset. He's been restarted on his home Xanax 1 mg 4 times a day, that I have added and with when necessary cigarettes which he is not requiring any significant amount of. He is also on on thiamine and folic acid and a multivitamin Problem #4 gastroesophageal reflux disease: The patient has long-standing chest pain related to gastroesophageal reflux disease he is on omeprazole 20 mg twice a day which controls his symptoms. He has had negative cardiac enzymes chest pain does not appear to be cardiac in etiology Problem #5 COPD: The patient is at his baseline respiratory status no active decompensation. Problem #6 chronic back pain: The patient is on Nathrop he tells me that it is worsened by being in the bed he tells me that his present discharge from pain clinic in [place] for THC abuse, physical therapy work with him and make sure he is safe to be discharged home and also place a pain management consult to see if he can be an established patient with our clinic here in [place] DISPOSITION: We'll continue to monitor patient closely VS, I&O, 24H, Fishbone VS, I&O, 24H, Fishbone Vital Signs Date Time Temp Pulse Resp B/P Pulse Ox O2 Delivery O2 Flow Rate FiO2 07/10/16 11:53 96 131/89 07/10/16 11:47 97.1 20 96 Room Air 07/08/16 12:00 2.0 I&O- Last 24 Hours up to 6 AM 07/10/16 06:00 Intake Total 2100 ml Output Total 1050 ml Balance 1050 ml Laboratory Tests 2 07/10/16 05:48: Blood Urea Nitrogen 16, Creatinine 0.95, Sodium Level 144, Potassium Level 3.5, Chloride Level 107, Carbon Dioxide Level 28, Calcium Level 8.4L, Aspartate Amino Transf (AST/SGOT) 18, Alanine Aminotransferase (ALT/SGPT) 28, Alkaline Phosphatase 58, Total Bilirubin 0.5, Total Protein 6.5, Albumin 3.2, Albumin/ Globulin Ratio 0.97L, Anion Gap 9, White Blood Count 5.1, Red Blood Count 4.33, Hemoglobin 14.6, Hematocrit 42.9, Mean Corpuscular Volume 99.1H, Mean Corpuscular Hemoglobin 33.8H, Mean Corpuscular Hemoglobin Concent 34.1, Red Cell Distribution Width 12.4, Platelet Count 172, Neutrophils (%) (Auto) 40.1, Lymphocytes (%) (Auto) 45.7H, Monocytes (%) (Auto) 6.8H, Eosinophils (%) (Auto) 3.2H, Basophils (%) (Auto) 0.6, Neutrophils # (Auto) 2.1, Lymphocytes # (Auto) 2.4, Monocytes # (Auto) 0.4, Eosinophils # (Auto) 0.2, Basophils # (Auto) 0.0, Glomerular Filtration Rate > 60.0, Large Unclassified Cells # 0.2, Large Unclassified Cells % 3.5, Magnesium Level 2.1, Prothromb Time International Ratio 1.10, Prothrombin Time 14.3 Laboratory Tests 07/10/16 05:48 Calcium Level 8.4 L, Aspartate Amino Transf (AST/SGOT) 18, Alanine Aminotransferase (ALT/SGPT) 28, Alkaline Phosphatase 58, Total Bilirubin 0.5, Total Protein 6.5, Albumin 3.2, Red Blood Count 4.33, Mean Corpuscular Volume 99.1 H, Mean Corpuscular Hemoglobin 33.8 H, Mean Corpuscular Hemoglobin Concent 34.1, Red Cell Distribution Width 12.4, Neutrophils (%) (Auto) 40.1, Lymphocytes (%) (Auto) 45.7 H, Monocytes (%) (Auto) 6.8 H, Eosinophils (%) (Auto ) 3.2 H, Basophils (%) (Auto) 0.6, Neutrophils # (Auto) 2.1, Lymphocytes # (Auto ) 2.4, Monocytes # (Auto) 0.4, Eosinophils # (Auto) 0.2, Basophils # (Auto) 0.0 RIVER FULTON MD Jul 10, 2016 13:04
[2016-07-10 16:00] VITALS: BP 127/73
[2016-07-10] MEDS ORDERED: RIVAROXABAN 20 MG TAB (XARELTO) PO SCH (18:00)
--- NOTE | 2016-07-10 18:55 | EDDOCDS ---
Physician Documentation [facility] Name: Umesh Harris Age: 45 yrs Sex: Male : 1970 Arrival Date: 07/07/2016 Time: 12:27 Bed Admit Hold Private MD: Isael Dumont Abdul Disposition: 07/07 15:34 Critical Care:. pc Disposition: 07/07/16 21:22 Hospitalization ordered by Kamala Fleder for Inpatient Admission. Preliminary diagnosis are Persistent atrial fibrillation, Alcohol abuse, Hypokalemia. - Bed requested for M PCU. - Status is Inpatient Admission. deg - Condition is Stable. - Problem is new. - Symptoms have improved. HPI: 12:58 This 45 yrs old Male presents to ER via Walkin/Carried/Asstd with complaints pc of Chest Pain. 12:58 The history is obtained from the patient. He has had SOBOE, feeling his heart race at pc times, easy fatigue, diaphoresis with any exertion, for 3 months. He has been to his PCP 4 times for this without any testing. He does not feel his heart racing currently, says he feels better lying down, at the time when his monitor showed AFib at 196 bpm. He has had chest pain at times, especially 2 days ago when shovelling snow, but he would stop, sit down, and he'd feel better after 5-6 minutes, then continued shovelling. At their worst, the symptoms were severe. In the emergency department, the symptoms are mild. Historical: - Allergies: no known allergies; - Home Meds: 1. hydrocodone-acetaminophen 7.5-325 mg Oral tab 2 tab every 8 hours (Last dose: 07/06/2016 20:00) 2. Xanax 1 mg Oral tab 1 tab every 6 hours (Last dose: 07/05/2016) 3. triamterene-hydrochlorothiazid 37.5-25 mg Oral tab 1 tab once daily (Last dose: 07/07/2016 07:00) - PMHx: back pain; Hypertension; ETOH abuse; - PSHx: Carpal Tunnel Repair- Bilateral; ANTERIOR CERVICAL DISCECTOMY WITH FUSION AND INSTRUMENTATION; - The history from nurses notes was reviewed: and I agree with what is documented. - Social history: Smoking status: Patient uses tobacco products, heavy tobacco smoker. No barriers to communication noted, Speaks appropriately for age, Patient uses alcohol reports 2 drinks this AM. - Family history: Not pertinent. - : The pt / caregiver states he / she is not on anticoagulants. Home medication list is obtained from the patient. - Hospitalizations: : No recent hospitalization is reported. - Exposure Risk Screening:: None identified. - Immunization history:: All immunizations up-to-date. - Social history:: the patient smokes cigarettes 1ppd the patient drinks alcohol, 6-26 beers per day every day the patient uses illicit drugs, including marijuana. ROS: 12:58 MS/Skin/Lymph: chronic neck and back pain. pc 12:58 All systems are negative except as listed. Exam: 12:58 General Appearance: no acute distress, alert. pc 12:58 EENT: normal eye inspection, ears, nose and throat normal, pharynx normal, mucous membranes moist no apparent trauma. 12:58 Neck: The exam reveals no acute abnormalities. ROM is normal and painless. No nuchal rigidity is noted.. 12:58 Respiratory: no respiratory distress, normal breath sounds, chest non-tender. 12:58 CVS: normal S1 and S2, no murmurs, strong peripheral pulses, normal capillary refill, the patient is tachycardic, at 190 bpm, irregularly irregular 12:58 Abdomen: soft, non-tender, no organomegaly, normal bowel sounds. 12:58 Back: normal inspection. 12:58 Skin: skin color is normal, warm, damp. 12:58 Extremities: The extremities have a grossly normal appearance, are non-tender, without acute ROM abnormalities, no pedal edema. 12:58 Neuro: oriented x 3, cranial nerves normal as tested, no motor deficits, no sensory deficits. 12:58 Psych: normal mood. Vital Signs: 12:28 BP 163 / 109; Pulse 156; Resp 18 S; Temp 98.7(O); Weight 115.67 kg / 255.01 lbs (R); gr2 Height 6 ft. 0 in. (182.88 cm) (R); Pain 6/10; 12:39 BP 141 / 95 (auto/); pml 12:40 Pulse 120 MON; Pulse Ox 100% ; pml 13:04 Pulse 158 MON; Pulse Ox 99% ; pml 13:04 BP 126 / 100 (auto/); pml 13:09 Pulse 150 MON; Pulse Ox 99% ; pml 13:09 BP 159 / 93 (auto/); pml 13:10 BP 159 / 93; Pulse 138; pml 13:14 Pulse 124 MON; Pulse Ox 100% ; pml 13:14 BP 118 / 80 (auto/); pml 13:15 BP 118 / 80; Pulse 118; pml 13:32 Pulse 120 MON; Pulse Ox 100% ; pml 13:32 BP 115 / 81 (auto/); pml 13:57 BP 121 / 76 (auto/); ld5 13:57 Pulse 134 MON; Pulse Ox 100% ; ld5 14:02 BP 131 / 86 (auto/); ld5 14:02 Pulse 116 MON; Pulse Ox 100% ; ld5 14:02 BP 131 / 86; Pulse 109; pml 14:07 BP 139 / 92 (auto/); ld5 14:07 Pulse 118 MON; Pulse Ox 100% ; ld5 14:07 BP 139 / 92; Pulse 106; pml 14:17 BP 120 / 83 (auto/); ld5 14:17 Pulse 114 MON; Pulse Ox 100% ; ld5 14:29 Weight 104.33 kg / 230.01 lbs (M); ld5 14:32 BP 119 / 77 (auto/); ld5 14:32 Pulse 114 MON; Pulse Ox 100% ; ld5 14:42 BP 104 / 73; Pulse 108; ld5 14:45 Pulse 108 MON; Pulse Ox 99% ; pml 14:45 BP 104 / 73 (auto/); pml 15:03 Pulse 108 MON; Pulse Ox 100% ; pml 15:03 BP 112 / 80 (auto/); pml 15:31 Pulse 112 MON; Pulse Ox 99% ; pml 15:33 BP 115 / 69 (auto/); pml 16:03 Pulse 108 MON; Pulse Ox 99% ; pml 16:03 BP 110 / 74 (auto/); pml 16:28 Pulse 128 MON; Pulse Ox 99% ; pml 16:28 BP 113 / 74 (auto/); pml 16:33 Pulse 124 MON; Pulse Ox 99% ; pml 16:33 BP 116 / 92 (auto/); pml 16:48 Pulse 120 MON; Pulse Ox 100% ; pml 16:48 BP 135 / 71 (auto/); pml 17:03 Pulse 124 MON; Pulse Ox 99% ; pml 17:03 BP 147 / 64 (auto/); pml 17:18 Pulse 122 MON; Pulse Ox 99% ; pml 17:18 BP 129 / 56 (auto/); pml 17:33 Pulse 122 MON; Pulse Ox 99% ; pml 17:33 BP 109 / 55 (auto/); pml 17:48 Pulse 132 MON; Pulse Ox 99% ; pml 17:48 BP 160 / 74 (auto/); pml 18:57 Pulse 122 MON; Pulse Ox 97% ; mlc 18:57 BP 137 / 77 (auto/); mlc 19:12 Pulse 122 MON; Pulse Ox 97% ; mlc 19:12 BP 124 / 78 (auto/); mlc 19:27 Pulse 118 MON; Pulse Ox 99% ; mlc 19:27 BP 112 / 89 (auto/); mlc 19:42 BP 127 / 92 (auto/); mlc 19:42 Pulse 124 MON; Pulse Ox 99% ; mlc 19:53 Pulse 132 MON; Pulse Ox 99% ; mlc 19:53 BP 134 / 77 (auto/); mlc 19:55 BP 134 / 77; Pulse 122; mlc 20:12 Pulse 124 MON; Pulse Ox 99% ; mlc 20:12 BP 115 / 82 (auto/); mlc 20:27 Pulse 134 MON; Pulse Ox 100% ; mlc 20:27 BP 140 / 72 (auto/); mlc 20:42 Pulse 132 MON; Pulse Ox 100% ; mlc 20:42 BP 123 / 79 (auto/); mlc 20:57 Pulse 128 MON; Pulse Ox 100% ; mlc 20:57 BP 130 / 70 (auto/); mlc 21:12 Pulse 124 MON; Pulse Ox 100% ; mlc 21:12 BP 112 / 68 (auto/); mlc 21:24 Pulse 130 MON; Pulse Ox 100% ; mlc 21:42 BP 117 / 68 (auto/); mlc 21:42 Pulse 112 MON; Pulse Ox 99% ; mlc 22:12 BP 151 / 92 (auto/); mlc 22:12 Pulse 126 MON; Pulse Ox 100% ; mlc 22:27 BP 134 / 84 (auto/); mlc 22:27 Pulse 126 MON; Pulse Ox 99% ; mlc 14:29 Body Mass Index 31.19 (104.33 kg, 182.88 cm) ld5 12:28 O2 WASN'T READING gr2 MDM: 12:29 ECG WITH READING ER PHYS+CARDIAG ordered. EDMS 12:55 Aspirin Chewable Tablet 324 mg PO once ordered. pc 12:55 Metoprolol (Tartrate) 50 mg PO once ordered. pc 12:55 Metoprolol 5 mg IVP every 5 minutes; Hold for SBP < 100 or HR < 60. x3 ordered. pc 12:55 pantoprazole 40 mg IV at bolus once ordered. pc 12:55 Pony Cylinder Press Operator/Pulse Ox/q 30 min VS ordered. pc 12:55 IV Saline Lock ordered. pc 12:55 Rhythm Strip to chart ordered. pc 12:55 Oxygen 2L via NC, titrate to maintain PO >95% ordered. pc 12:56 B-Type Natiuretic Peptide Ordered. EDMS 12:56 Basic Metabolic Profile Ordered. EDMS 12:56 CBC with Diff Ordered. EDMS 12:56 Cardiac Injury Profile Ordered. EDMS 12:56 Partial Thromboplastin Time Ordered. EDMS 12:56 Prothrombin Time Profile\E\INR Ordered. EDMS 12:56 Troponin Ordered. EDMS 12:57 portable chest Ordered. EDMS 12:57 TSH w/o Free T4 Ordered. EDMS 12:58 Differential Diagnosis: AFib with RVR of unknown duration; alcoholism. Plan: labs, EKG, pc imaging, meds. Test interpretation: EKG. 13:47 B-Type Natiuretic Peptide Reviewed. pc 13:47 Basic Metabolic Profile Reviewed. pc 13:47 CBC with Diff Reviewed. pc 13:47 Cardiac Injury Profile Reviewed. pc 13:47 Partial Thromboplastin Time Reviewed. pc 13:47 Prothrombin Time Profile\E\INR Reviewed. pc 13:47 Troponin Reviewed. pc 13:47 TSH w/o Free T4 Reviewed. pc 13:48 Potassium Chloride Extended Release Tablet 40 mEq PO once ordered. pc 13:48 Metoprolol 5 mg IVP every 5 minutes; Hold for SBP < 100 or HR < 60. x3 ordered. pc 13:52 LIPASE Ordered. EDMS 13:52 LIVER PROFILE Ordered. EDMS 13:52 MAGNESIUM LEVEL Ordered. EDMS 13:57 MAGNESIUM LEVEL Reviewed. pc 13:57 LIVER PROFILE Reviewed. pc 13:57 LIPASE Reviewed. pc 13:57 Basic Metabolic Profile Reviewed. pc 13:57 Cardiac Injury Profile Reviewed. pc 13:57 Troponin Reviewed. pc 14:19 Basic Metabolic Profile Reviewed. pc 14:19 Cardiac Injury Profile Reviewed. pc 14:19 LIVER PROFILE Reviewed. pc 14:19 Troponin Reviewed. pc 14:19 LIPASE Reviewed. pc 14:19 MAGNESIUM LEVEL Reviewed. pc 14:20 Metoprolol 5 mg IVP every 5 minutes; Hold for SBP < 100 or HR < 60. x3 ordered. pc 14:21 Weigh Pt on scale, in Kg (Do Not Use Reported Weight) ordered. pc 15:06 Repeat EKG (put time details section) ordered. pc 15:07 Repeat EKG (put time details section) complete. ar3 15:08 ECG WITH READING ER PHYS ordered. EDMS 15:21 Financial registration complete. lg 15:26 Enoxaparin (1mg/kg) 100 mg Sub-Q once; Ensure no Heparin in past 6hrs. Ensure any pc baseline labs are drawn. ordered. 15:29 [facility] Payment Agreement was scanned into [employer] and attached to record. lg 15:30 Nitrostat 0.4 mg Sublingual every 5 minutes; hold if SBP<90mmHg.Document Pain Score pc Response to Each Dose x3 ordered. 15:30 Data reviewed: old medical records, vital signs, nurses notes, EKG(s), lab test pc results, all radiology studies and available results. Test interpretation: LAB - all labs as ordered have been reviewed, interpreted and considered in the overall management of the clinical presentation; X-RAY - interpreted by Radiologist and personally reviewed, 1 view chest no acute disease. The patient has been re-examined and re-evaluated. The patient's symptoms have mildly improved after treatment. Physician consultation: Dr. Nathalie Deluca regarding patient's condition, and advises the medications/treatment as provided. 15:34 Physician consultation: Dr. Kamala Felder was contacted at 15:35, regarding pc admission, and will see patient in ED, shortly. Disposition: The historical points, examination findings, and any diagnostic results supporting the provided diagnosis, were discussed with the patient or legal guardian. The need for further work-up and/or treatment in the hospital was explained. 15:36 BED REQUEST+ADM ordered. EDMS 16:45 Test interpretation: EKG. pc 17:51 Admission / Observation Status ordered. EDMS 17:51 ECHOCARD,DOPPLER/COLOR FLOW ordered. EDMS 17:51 2 GRAM SODIUM DIET ordered. EDMS 18:12 Nicotine Patch 21 mg/24 hr 1 applic Transdermal once ordered. pml 18:12 Acetaminophen Tablet 650 mg PO once ordered. pml 18:51 CARDIAC MARKER PANEL Ordered. EDMS 19:33 CBC WITH DIFFERENTIAL Ordered. EDMS 19:33 COMPLETE COMPHRENSIVE METABOLI Ordered. EDMS 19:33 MAGNESIUM LEVEL Ordered. EDMS 19:33 PROTHROMBIN TIME PROFILE\E\INR Ordered. EDMS 19:33 CARDIAC MARKER PANEL Ordered. EDMS 19:33 CARDIAC MARKER PANEL Ordered. EDMS 19:58 HYDROcodone-acetaminophen 7.5 mg-325 mg 1 tabs PO once ordered. mlc EC:58 Rate is 169 beats/min. Rhythm is irregularly irregular, A fib. QRS Sharon is Normal. QRS pc interval is normal. QT interval is normal. No Q waves. T waves are Normal. No ST changes noted. Clinical impression: Atrial Fibrillation with RVR. Changes noted from previous ECG in December,. 16:45 Rate is 114 beats/min. Rhythm is irregularly irregular, A fib. QRS Sharon is Normal. QRS pc interval is normal. QT interval is normal. No Q waves. T waves are Normal. No ST changes noted. Clinical impression: Atrial Fibrillation with RVR. Administered Medications: 13:05 Drug: Metoprolol 5 mg [metoprolol 5 mg/5 mL intravenous solution (5 mL)] {Note: 126/100 pml HR 171.} Route: IVP; Site: right antecubital; 13:10 Follow up: BP 159 / 93; Pulse 138 bpm pml 13:09 Drug: Aspirin 324 mg [aspirin 81 mg chewable tablet (4 tabs)] Route: PO; pml 13:09 Drug: Metoprolol 50 mg [metoprolol tartrate 50 mg tablet (1 tabs)] Route: PO; pml 13:11 Drug: Metoprolol 5 mg [metoprolol 5 mg/5 mL intravenous solution (5 mL)] {Note: 138 HR pml 159/93.} Route: IVP; Site: right antecubital; 13:15 Follow up: BP 118 / 80; Pulse 118 bpm pml 13:17 Drug: Metoprolol 5 mg [metoprolol 5 mg/5 mL intravenous solution (5 mL)] {Note: 118/80 pml HR 118.} Route: IVP; Site: right antecubital; 13:18 Drug: pantoprazole 40 mg [pantoprazole 40 mg intravenous solution] Route: IV; Rate: pml bolus; Site: right antecubital; 13:55 Drug: Potassium Chloride 40 mEq [potassium chloride ER 10 mEq tablet,extended release pml (4 tabs)] Route: PO; 13:58 Drug: Metoprolol 5 mg [metoprolol 5 mg/5 mL intravenous solution (5 mL)] {Note: HR 130 pml BP 121/76.} Route: IVP; Site: right antecubital; 14:02 Follow up: BP 131 / 86; Pulse 109 bpm pml 14:03 Drug: Metoprolol 5 mg [metoprolol 5 mg/5 mL intravenous solution (5 mL)] Route: IVP; pml Site: right antecubital; 14:07 Follow up: BP 139 / 92; Pulse 106 bpm pml 14:08 Drug: Metoprolol 5 mg [metoprolol 5 mg/5 mL intravenous solution (5 mL)] Route: IVP; pml Site: left antecubital; 14:35 Drug: Metoprolol 5 mg [metoprolol 5 mg/5 mL intravenous solution (5 mL)] Route: IVP; ld5 Site: right antecubital; 14:42 Follow up: BP 104 / 73; Pulse 108 bpm ld5 16:19 Drug: Nitrostat 0.4 mg [Nitrostat 0.4 mg sublingual tablet (1 tabs)] Route: Sublingual; pml 16:25 Follow up: Response: Pain is resolved pml 16:21 Drug: Enoxaparin (1mg/kg) 100 mg [enoxaparin 100 mg/mL subcutaneous syringe (1 mL)] pml {Co-Signature: ld5 (Zoila Palm RN).} Route: Sub-Q; Site: left lower abdomen; 18:12 Drug: Nicotine 1 applic [nicotine 21 mg/24 hr daily transdermal patch (1 patches)] pml Route: Transdermal; Site: left upper arm; 18:12 Drug: Acetaminophen 650 mg [acetaminophen 325 mg tablet (2 tabs)] Route: PO; pml 19:43 Drug: Nitrostat 0.4 mg [Nitrostat 0.4 mg sublingual tablet (1 tabs)] Route: Sublingual; mlc 19:55 Follow up: BP 134 / 77; Pulse 122 bpm; Response: No significant change. mlc 20:29 Drug: HYDROcodone-acetaminophen 1 tabs [hydrocodone 7.5 mg-acetaminophen 325 mg tablet mlc (1 tabs)] Route: PO; 21:25 Follow up: Response: Pain is decreased mlc Critical Care Time: 15:34 Critical care time: Bedside Care: 30 minutes, Consultation: 20 minutes. Total time: 50 pc minutes Signatures: Dispatcher [employer] Ollie Ochoa MD MD pc Bridget Segal, [employer] deg Galloway, Pamela Gudino, RN RN oni Burnham, Magaly, Reg Reg lg Anyi, Saji, [employer] ml3 Saeid Laughlin RN RN ml6 Yoselin Rodriguez, [employer] ar3 BhargavDayanna gardunoRN RN Kaylee Macedo RN RN mlc Dickerson, Laura RN ld5 Zoila Palm RN ld5 The chart was reviewed and I authenticate all verbal orders and agree with the evaluation and treatment provided.Corrections: (The following items were deleted from the chart) 12:58 12:43 PSHx: ACDFI; ml6 ml6 13:51 13:49 MAGNESIUM LEVEL+LAB ordered. EDMS EDMS 13:51 13:49 LIVER PROFILE+LAB ordered. EDMS EDMS 13:51 13:49 LIPASE+LAB ordered. EDMS EDMS 18:52 17:49 CARDIAC MARKER PANEL ordered. EDMS EDMS Attachments: 15:29 [facility] Payment Agreement lg Chart Complete MTDD
--- NOTE | 2016-07-10 18:55 | EDDOCDS ---
Nurse's Notes [facility] Name: Arley Harris Age: 45 yrs Sex: Male : 1970 Arrival Date: 07/07/2016 Time: 12:27 Bed Admit Hold Private MD: Isael Dumont Abdul Diagnosis: Persistent atrial fibrillation;Alcohol abuse;Hypokalemia Presentation: 07/07 12:28 Presenting complaint: Patient states: patient states that he ran out of his xanax and ml6 hydrocodone due to the holidays, patient diaphoretic, shaking, states that he is having chest pressure 6/10. Aspirin was not taken prior to arrival. Adult Sepsis Screening: The patient does not have new or worsening altered mentation. Patient's respiratory rate is less than 22. Systolic blood pressure is greater than 100. Patient has a qSOFA score of 0- Negative Sepsis Screen. Suicide/Homicide risk assessment- the patient denies having any suicidal and/or homicidal ideations and does not present with any other emotional, behavioral or mental health complaints. 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 Transition of care: patient was not received from another setting of care. Red Flag criteria, patient assessed and taken directly to a bed. Red Flag criteria, not notified by PIPE STEM ALIGNER. 12:28 Acuity: PERLA Level 2 ml6 12:28 Method Of Arrival: Walkin/Carried/Asstd ml6 Triage Assessment: 12:43 General: Appears distressed. Pain: Location: chest Pain currently is 6 out of 10 on a ml6 pain scale. Pain does not radiate. Quality of pain is described as aching, Pain began 1 day ago. HIV screening NA for this visit Offered previously. Neurological: No deficits noted. Cardiovascular: Capillary refill < 3 seconds is brisk in bilateral fingers toes Heart tones S1 S2 present Edema is absent. Chest pain is described as mild, quality is pressure, radiates Does not radiate. episodes are continuous began 4 hours prior to arrival. Historical: - Allergies: no known allergies; - Home Meds: 1. hydrocodone-acetaminophen 7.5-325 mg Oral tab 2 tab every 8 hours (Last dose: 07/06/2016 20:00) 2. Xanax 1 mg Oral tab 1 tab every 6 hours (Last dose: 07/05/2016) 3. triamterene-hydrochlorothiazid 37.5-25 mg Oral tab 1 tab once daily (Last dose: 07/07/2016 07:00) - PMHx: back pain; Hypertension; ETOH abuse; - PSHx: Carpal Tunnel Repair- Bilateral; ANTERIOR CERVICAL DISCECTOMY WITH FUSION AND INSTRUMENTATION; - The history from nurses notes was reviewed: and I agree with what is documented. - Social history: Smoking status: Patient uses tobacco products, heavy tobacco smoker. No barriers to communication noted, Speaks appropriately for age, Patient uses alcohol reports 2 drinks this AM. - Family history: Not pertinent. - : The pt / caregiver states he / she is not on anticoagulants. Home medication list is obtained from the patient. - Hospitalizations: : No recent hospitalization is reported. - Exposure Risk Screening:: None identified. - Immunization history:: All immunizations up-to-date. - Social history:: the patient smokes cigarettes 1ppd the patient drinks alcohol, 6-26 beers per day every day the patient uses illicit drugs, including marijuana. Screenin:47 Screening information is obtained from the patient. Fall risk: No risks identified. pml Assistance ADL's: requires no assistance with activities of daily living. Abuse/DV Screen: The patient / caregiver reports he/she is: not in a situation that causes fear, pain or injury. Nutritional screening: No deficits noted. Advance Directives: Currently, there is no health care proxy. home support is adequate. Assessment: 12:45 General: Appears in no apparent distress, Behavior is anxious, appropriate for age, pml cooperative. Pain: Location: chest Quality of pain is described as vibration. Neurological: Level of Consciousness is awake, alert, Oriented to person, place, time. Cardiovascular: Capillary refill < 3 seconds Rhythm is atrial fibrillation with rapid ventricular response. Respiratory: Airway is patent Respiratory effort is even, unlabored, Breath sounds are coarse Breath sounds with rhonchi expiratory bilaterally. GI: Abdomen is non- distended. Derm: Skin is pink, warm & dry. 13:39 General: resting on stretcher, resps easy and unlabored, atrial fib in 130s on monitor. pml denies pain, continues to report "indigestion" in chest at times. 14:37 General: First contact with pt. Pt sitting up quietly in bed. Pleasant and cooperative. ld5 Denies pain. Pt up to scale. Tolerated well. Pt medicated per orders. Will continue to monitor. 14:51 General: BP discussed with provider. Further dosing of metoprolol held at this time. ld5 Primary RN made aware. 15:13 General: Appears in no apparent distress, Behavior is appropriate for age, cooperative. pml Pain: Location: anterior aspect of left upper chest Pain currently is 5 out of 10 on a pain scale. Pain: Quality of pain is described as pressure. Neurological: Level of Consciousness is awake, alert, Oriented to person, place, time. Cardiovascular: Capillary refill < 3 seconds Rhythm is atrial fibrillation with rapid ventricular response. Respiratory: Airway is patent Respiratory effort is even, unlabored. Derm: Skin is pink, warm & dry. 16:19 General: reports pressure persists to left chest wall 3/10. medicated as indicated on pml emar. MD Felder at bedside. remains in afib at 120s-130s. 17:15 General: Appears in no apparent distress, comfortable, Behavior is appropriate for age, pml cooperative. Pain: Location: buttocks Pain currently is 10 out of 10 on a pain scale. Neurological: Level of Consciousness is awake, alert, Oriented to person, place, time. Cardiovascular: Capillary refill < 3 seconds Rhythm is atrial fibrillation with rapid ventricular response. Respiratory: Airway is patent Respiratory effort is even, unlabored. Derm: Skin is pink, warm & dry. 18:13 General: resting on stretcher, no apparent distress. resps easy and unlabored, skin pml p/w/d. atrial fib on monitor. reports pain in buttocks. . 19:20 General: Appears in no apparent distress, comfortable, Behavior is cooperative. mlc Neurological: Level of Consciousness is awake, alert, Oriented to person, place, time. Cardiovascular: Rhythm is atrial fibrillation. Respiratory: Airway is patent Respiratory effort is even, unlabored, Respiratory pattern is regular. Derm: Skin is pink, warm & dry. 19:43 Reassessment: pt reports a burning pain in his chest, pt medicated per order. resp mlc easy/unlabored. no other symptoms at this time. . 20:30 General: pt medicated per order. resp easy/unlabored. . mlc 21:20 Reassessment: Patient appears in no apparent distress at this time. Patient states mlc feeling better. pt resting comfortably, lights dimmed for comfort. resp easy/unlabored. . 22:39 General: Appears in no apparent distress, comfortable, Behavior is cooperative. mlc Neurological: Level of Consciousness is awake, alert, Oriented to person, place, time. Respiratory: Airway is patent Respiratory effort is even, unlabored, Respiratory pattern is regular. Derm: Skin is pink, warm & dry. 22:39 General: report given to Carmen Farley, RN (enriquez nurse). See [facility] for further [facility] [place]. . Vital Signs: 12:28 BP 163 / 109; Pulse 156; Resp 18 S; Temp 98.7(O); Weight 115.67 kg (R); Height 6 ft. 0 gr2 in. (182.88 cm) (R); Pain 6/10; 12:39 BP 141 / 95 (auto/); pml 12:40 Pulse 120 MON; Pulse Ox 100% ; pml 13:04 Pulse 158 MON; Pulse Ox 99% ; pml 13:04 BP 126 / 100 (auto/); pml 13:09 Pulse 150 MON; Pulse Ox 99% ; pml 13:09 BP 159 / 93 (auto/); pml 13:10 BP 159 / 93; Pulse 138; pml 13:14 Pulse 124 MON; Pulse Ox 100% ; pml 13:14 BP 118 / 80 (auto/); pml 13:15 BP 118 / 80; Pulse 118; pml 13:32 Pulse 120 MON; Pulse Ox 100% ; pml 13:32 BP 115 / 81 (auto/); pml 13:57 BP 121 / 76 (auto/); ld5 13:57 Pulse 134 MON; Pulse Ox 100% ; ld5 14:02 BP 131 / 86 (auto/); ld5 14:02 Pulse 116 MON; Pulse Ox 100% ; ld5 14:02 BP 131 / 86; Pulse 109; pml 14:07 BP 139 / 92 (auto/); ld5 14:07 Pulse 118 MON; Pulse Ox 100% ; ld5 14:07 BP 139 / 92; Pulse 106; pml 14:17 BP 120 / 83 (auto/); ld5 14:17 Pulse 114 MON; Pulse Ox 100% ; ld5 14:29 Weight 104.33 kg (M); ld5 14:32 BP 119 / 77 (auto/); ld5 14:32 Pulse 114 MON; Pulse Ox 100% ; ld5 14:42 BP 104 / 73; Pulse 108; ld5 14:45 Pulse 108 MON; Pulse Ox 99% ; pml 14:45 BP 104 / 73 (auto/); pml 15:03 Pulse 108 MON; Pulse Ox 100% ; pml 15:03 BP 112 / 80 (auto/); pml 15:31 Pulse 112 MON; Pulse Ox 99% ; pml 15:33 BP 115 / 69 (auto/); pml 16:03 Pulse 108 MON; Pulse Ox 99% ; pml 16:03 BP 110 / 74 (auto/); pml 16:28 Pulse 128 MON; Pulse Ox 99% ; pml 16:28 BP 113 / 74 (auto/); pml 16:33 Pulse 124 MON; Pulse Ox 99% ; pml 16:33 BP 116 / 92 (auto/); pml 16:48 Pulse 120 MON; Pulse Ox 100% ; pml 16:48 BP 135 / 71 (auto/); pml 17:03 Pulse 124 MON; Pulse Ox 99% ; pml 17:03 BP 147 / 64 (auto/); pml 17:18 Pulse 122 MON; Pulse Ox 99% ; pml 17:18 BP 129 / 56 (auto/); pml 17:33 Pulse 122 MON; Pulse Ox 99% ; pml 17:33 BP 109 / 55 (auto/); pml 17:48 Pulse 132 MON; Pulse Ox 99% ; pml 17:48 BP 160 / 74 (auto/); pml 18:57 Pulse 122 MON; Pulse Ox 97% ; mlc 18:57 BP 137 / 77 (auto/); mlc 19:12 Pulse 122 MON; Pulse Ox 97% ; mlc 19:12 BP 124 / 78 (auto/); mlc 19:27 Pulse 118 MON; Pulse Ox 99% ; mlc 19:27 BP 112 / 89 (auto/); mlc 19:42 BP 127 / 92 (auto/); mlc 19:42 Pulse 124 MON; Pulse Ox 99% ; mlc 19:53 Pulse 132 MON; Pulse Ox 99% ; mlc 19:53 BP 134 / 77 (auto/); mlc 19:55 BP 134 / 77; Pulse 122; mlc 20:12 Pulse 124 MON; Pulse Ox 99% ; mlc 20:12 BP 115 / 82 (auto/); mlc 20:27 Pulse 134 MON; Pulse Ox 100% ; mlc 20:27 BP 140 / 72 (auto/); mlc 20:42 Pulse 132 MON; Pulse Ox 100% ; mlc 20:42 BP 123 / 79 (auto/); mlc 20:57 Pulse 128 MON; Pulse Ox 100% ; mlc 20:57 BP 130 / 70 (auto/); mlc 21:12 Pulse 124 MON; Pulse Ox 100% ; mlc 21:12 BP 112 / 68 (auto/); mlc 21:24 Pulse 130 MON; Pulse Ox 100% ; mlc 21:42 BP 117 / 68 (auto/); mlc 21:42 Pulse 112 MON; Pulse Ox 99% ; mlc 22:12 BP 151 / 92 (auto/); mlc 22:12 Pulse 126 MON; Pulse Ox 100% ; mlc 22:27 BP 134 / 84 (auto/); mlc 22:27 Pulse 126 MON; Pulse Ox 99% ; mlc 14:29 Body Mass Index 31.19 (104.33 kg, 182.88 cm) ld5 12:28 O2 WASN'T READING gr2 Vitals: 12:28 Log In Time: July 07, 2016 at 12:28. RN notified that patient meets Red Flag gr2 criteria. ED Course: 12:28 Patient visited by Andrey Rayo. gr2 12:28 Isael Dumont is Private Physician. gr2 12:28 Dayanna Durant,RN is Primary Nurse. ml6 12:28 Patient moved to Waiting gr2 12:28 Patient moved to 11 ml6 12:31 Patient visited by Andrey Rayo. gr2 12:37 EKG done. (by ED staff). Reviewed by Ollie Jones MD. dem1 12:38 Patient visited by Dileep Chou. dem1 12:40 Ollie Jones MD is Attending Physician. pc 12:40 Triage Initiated ml6 12:47 The patient / caregiver is instructed regarding the plan of care and ED course. Patient pml has correct armband on for positive identification. Placed in gown. Bed in low position. Call light in reach. Side rails up X2. monitor tech on. Pulse ox on. NIBP on. 12:47 Inserted peripheral IV: 18gauge IV in right antecubital area and blood collected. pml Patient tolerated the procedure well. 12:48 Patient visited by Dayanna Durant,ELIZABETH. pml 12:53 Patient visited by Ollie Jones MD. pc 13:40 Patient visited by Dayanna Durant RN. pml 14:38 Patient visited by Zoila Palm RN. ld5 14:52 Patient visited by Zoila Palm RN. ld5 15:14 EKG done. (by ED staff). Reviewed by Ollie Jones MD. pml 15:28 Patient name changed from Arley\\S\\W\\S\\[place]\\S\\ to Arley\\S\\Ulysses\\S\\Steven. EDMS 15:29 [facility] into [email or web address] and attached to record. lg 15:36 Kamala Felder is Hospitalizing Provider. pc 16:20 Patient visited by Dayanna Durant,ELIZABETH. pml 16:20 portable chest Returned. EDMS 18:14 Patient visited by Dayanna Durant,ELIZABETH. pml 18:32 Patient moved to Admit Hold kpj 19:00 Kaylee Landry RN is Primary Nurse. mlc 19:04 Patient visited by Trung Santiago PCA. kb5 19:24 Patient moved to 11 ml3 19:44 Patient visited by Kaylee Landry RN. mlc 19:48 EKG-ADULT Returned. EDMS 19:49 ECG WITH READING ER PHYS Returned. EDMS 21:20 Patient visited by Love Lancaster. sew 21:22 Kamala Felder is Hospitalizing Provider. pc 21:26 Patient visited by Kaylee Landry RN. mlc 22:14 Patient moved to Admit Hold ml3 22:32 Patient visited by Trung Santiago PCA. kb5 22:39 Patient visited by Kaylee Landry RN. mlc 07/08 00:42 Primary Nurse role handed off by Dayanna Durant RN kb5 07:23 Primary Nurse role handed off by Kaylee Landry RN deg Administered Medications: 07/07 13:05 Drug: Metoprolol 5 mg [metoprolol 5 mg/5 mL intravenous solution (5 mL)] {Note: 126/100 pml HR 171.} Route: IVP; Site: right antecubital; 13:10 Follow up: BP 159 / 93; Pulse 138 bpm pml 13:09 Drug: Aspirin 324 mg [aspirin 81 mg chewable tablet (4 tabs)] Route: PO; pml 13:09 Drug: Metoprolol 50 mg [metoprolol tartrate 50 mg tablet (1 tabs)] Route: PO; pml 13:11 Drug: Metoprolol 5 mg [metoprolol 5 mg/5 mL intravenous solution (5 mL)] {Note: 138 HR pml 159/93.} Route: IVP; Site: right antecubital; 13:15 Follow up: BP 118 / 80; Pulse 118 bpm pml 13:17 Drug: Metoprolol 5 mg [metoprolol 5 mg/5 mL intravenous solution (5 mL)] {Note: 118/80 pml HR 118.} Route: IVP; Site: right antecubital; 13:18 Drug: pantoprazole 40 mg [pantoprazole 40 mg intravenous solution] Route: IV; Rate: pml bolus; Site: right antecubital; 13:55 Drug: Potassium Chloride 40 mEq [potassium chloride ER 10 mEq tablet,extended release pml (4 tabs)] Route: PO; 13:58 Drug: Metoprolol 5 mg [metoprolol 5 mg/5 mL intravenous solution (5 mL)] {Note: HR 130 pml BP 121/76.} Route: IVP; Site: right antecubital; 14:02 Follow up: BP 131 / 86; Pulse 109 bpm pml 14:03 Drug: Metoprolol 5 mg [metoprolol 5 mg/5 mL intravenous solution (5 mL)] Route: IVP; pml Site: right antecubital; 14:07 Follow up: BP 139 / 92; Pulse 106 bpm pml 14:08 Drug: Metoprolol 5 mg [metoprolol 5 mg/5 mL intravenous solution (5 mL)] Route: IVP; pml Site: left antecubital; 14:35 Drug: Metoprolol 5 mg [metoprolol 5 mg/5 mL intravenous solution (5 mL)] Route: IVP; ld5 Site: right antecubital; 14:42 Follow up: BP 104 / 73; Pulse 108 bpm ld5 16:19 Drug: Nitrostat 0.4 mg [Nitrostat 0.4 mg sublingual tablet (1 tabs)] Route: Sublingual; pml 16:25 Follow up: Response: Pain is resolved pml 16:21 Drug: Enoxaparin (1mg/kg) 100 mg [enoxaparin 100 mg/mL subcutaneous syringe (1 mL)] pml {Co-Signature: ld5 (Zoila Palm RN).} Route: Sub-Q; Site: left lower abdomen; 18:12 Drug: Nicotine 1 applic [nicotine 21 mg/24 hr daily transdermal patch (1 patches)] pml Route: Transdermal; Site: left upper arm; 18:12 Drug: Acetaminophen 650 mg [acetaminophen 325 mg tablet (2 tabs)] Route: PO; pml 19:43 Drug: Nitrostat 0.4 mg [Nitrostat 0.4 mg sublingual tablet (1 tabs)] Route: Sublingual; mlc 19:55 Follow up: BP 134 / 77; Pulse 122 bpm; Response: No significant change. mlc 20:29 Drug: HYDROcodone-acetaminophen 1 tabs [hydrocodone 7.5 mg-acetaminophen 325 mg tablet mlc (1 tabs)] Route: PO; 21:25 Follow up: Response: Pain is decreased mlc Order Results: Lab Order: B-Type Natiuretic Peptide; SPEC'M 07/07/16 12:42 Test: BRAIN NATRIURETIC PEPTIDE; Value: 213; Range: <100; Abnormal: Above high normal; Units: PG/ML; Status: F Lab Order: Basic Metabolic Profile; SPEC'M 07/07/16 12:42 Test: GLUCOSE, FASTING; Value: 169; Range: 70-105; Abnormal: Above high normal; Units: MG/DL; Status: F Test: BLOOD UREA NITROGEN; Value: 10; Range: 7-18; Units: MG/DL; Status: F Test: CREATININE FOR GFR; Value: 1.09; Range: 0.70-1.30; Units: MG/DL; Status: F Test: GLOMERULAR FILTRATION RATE; Value: > 60.0; Range: >60; Status: F Test: SODIUM LEVEL; Value: 138; Range: 136-145; Units: MEQ/L; Status: F Test: POTASSIUM SERUM; Value: 3.0; Range: 3.5-5.1; Abnormal: Below low normal; Units: MEQ/L; Status: F Test: CHLORIDE LEVEL; Value: 100; Range: 98-107; Units: MEQ/L; Status: F Test: CARBON DIOXIDE LEVEL; Value: 28; Range: 21-32; Units: MEQ/L; Status: F Test: ANION GAP; Value: 10; Range: 8-16; Units: MEQ/L; Status: F Test: CALCIUM LEVEL; Value: 9.2; Range: 8.5-10.1; Units: MG/DL; Status: F Test Note: ; Units are mL/min/1.73 m2 Chronic Kidney Disease Staging per NKF: Stage I & II GFR >=60 Normal to Mildly Decreased Stage III GFR 30-59 Moderately Decreased Stage IV GFR 15-29 Severely Decreased Stage V GFR <15 Very Little GFR Left ESRD GFR <15 on BEAN WEIGHER Lab Order: CBC with Diff; [facility] 07/07/16 12:42 Test: WHITE BLOOD COUNT; Value: 10.5; Range: 4.0-10.0; Abnormal: Above high normal; Units: K/mm3; Status: F Test: RED BLOOD COUNT; Value: 4.77; Range: 4.30-6.10; Units: M/mm3; Status: F Test: HEMOGLOBIN; Value: 16.0; Range: 14.0-18.0; Units: g/dl; Status: F Test: HEMATOCRIT; Value: 46.0; Range: 42.0-52.0; Units: %; Status: F Test: MEAN CORPUSCULAR VOLUME; Value: 96.4; Range: 80.0-96.0; Abnormal: Above high normal; Units: fl; Status: F Test: MEAN CORPUSCULAR HEMOGLOBIN; Value: 33.6; Range: 27.0-33.0; Abnormal: Above high normal; Units: pg; Status: F Test: MEAN CORPUSCULAR HGB CONC; Value: 34.8; Range: 32.0-36.5; Units: g/dl; Status: F Test: RED CELL DISTRIBUTION WIDTH; Value: 13.4; Range: 11.5-14.5; Units: %; Status: F Test: PLATELET COUNT, AUTOMATED; Value: 207; Range: 150-450; Units: k/mm3; Status: F Test: NEUTROPHILS %; Value: 60.5; Range: 36.0-66.0; Units: %; Status: F Test: LYMPH %; Value: 28.6; Range: 24.0-44.0; Units: %; Status: F Test: MONO %; Value: 6.2; Range: 0.0-5.0; Abnormal: Above high normal; Units: %; Status: F Test: EOS %; Value: 0.8; Range: 0.0-3.0; Units: %; Status: F Test: BASO %; Value: 1.6; Range: 0.0-1.0; Abnormal: Above high normal; Units: %; Status: F Test: LARGE UNSTAINED CELL %; Value: 2.3; Range: 0.0-4.0; Units: %; Status: F Test: NEUTROPHILS #; Value: 6.3; Range: 1.8-7.7; Units: K/mm3; Status: F Test: LYMPH #; Value: 3.2; Range: 1.5-4.5; Units: K/mm3; Status: F Test: MONO #; Value: 0.7; Range: 0.0-0.8; Units: K/mm3; Status: F Test: EOS #; Value: 0.1; Range: 0.0-0.50; Units: K/mm3; Status: F Test: BASO #; Value: 0.2; Range: 0.0-0.2; Units: K/mm3; Status: F Test: LARGE UNSTAINED CELL #; Value: 0.2; Range: 0.0-0.4; Units: K/mm3; Status: F Lab Order: Cardiac Injury Profile; [facility]07/07/16 12:42 Test: CPK CREATINE PHOSPHOKINASE; Value: 483; Range: 39-308; Abnormal: Above high normal; Units: U/L; Status: F Test: CK-MB VALUE MASS; Value: 9.0; Range: 0.0-3.6; Abnormal: Above high normal; Units: NG/ML; Status: F Test: MB/CK RELATIVE INDEX; Value: 1.86; Range: < OR =4; Status: F Test Note: ; DIAGNOSIS CRITERIA MMB ng/ml Relative Index (RI) NON-AMI < or = 5 N/A [place]ONE > 5 < or = 4 AMI > 5 > 4 Lab Order: Partial Thromboplastin Time; [facility]07/07/16 12:42 Test: PARTIAL THROMBOPLASTIN TIME; Value: 29.0; Range: 26.6-37.1; Units: SECONDS; Status: F Lab Order: Prothrombin Time Profile\\E\\INR; 07/07/16 12:42 Test: PROTHROMBIN TIME; Value: 13.6; Range: 12.3-14.5; Units: SECONDS; Status: F Test: INR; Value: 1.03; Status: F Test Note: ; THERAPUTIC HUMAN INR VALUES INDICATIONS NORMAL RANGES PROPHYLAXIS/TREATMENT OF: VENOUS THROMBOSIS 2.0-3.0 PULMONARY EMBOLISM 2.0-3.0 PREVENTION OF SYSTEMIC EMBOLISM FROM: TISSUE HEART VALVES 2.0-3.0 ACUTE MYOCARDIAL INFARCTION 2.0-3.0 VALVULAR HEART DISEASE 2.0-3.0 ATRIAL FIBRILLATION 2.0-3.0 MECHANICAL VALVES(HIGH RISK) 2.5-3.5 RECURRENT MYOCARDIAL INFARCTION 2.5-3.5 Lab Order: Troponin; [facility] 07/07/16 12:42 Test: TROPONIN I; Value: < 0.02; Range: < 0.10; Units: NG/ML; Status: F Test Note: ; Troponin I Reference Interval for Recommind LOCI: 99th Percentile= 0.00-0.045 ng/ml Risk Stratification: <= 0.10 ng/ml Decreased Risk for Adverse Clinical Events. 0.10-1.50 ng/ml Increased Risk for Adverse Clinical Events. Evaluation of additional criterion and/or repeat testing in 2-6 hours is suggested to rule out myocardial damage. >= 1.50 ng/ml Indicative of Myocardial Injury. Lab Order: TSH w/o Free T4; [facility] 07/07/16 12:42 Test: THYROID STIMULATING HORMONE; Value: 1.340; Range: 0.358-3.740; Units: uIU/ML; Status: F Lab Order: LIPASE; [facility] 07/07/16 12:42 Test: LIPASE; Value: 166; Range: 73-393; Units: U/L; Status: F Lab Order: LIVER PROFILE; [facility] 07/07/16 12:42 Test: AST/SGOT; Value: 46; Range: 15-37; Abnormal: Above high normal; Units: U/L; Status: F Test: ALT/SGPT; Value: 41; Range: 12-78; Units: U/L; Status: F Test: ALKALINE PHOSPHATASE; Value: 79; Range: 45-117; Units: U/L; Status: F Test: BILIRUBIN,TOTAL; Value: 0.8; Range: 0.2-1.0; Units: MG/DL; Status: F Test: BILIRUBIN,DIRECT; Value: 0.2; Range: 0.0-0.2; Units: MG/DL; Status: F Test: TOTAL PROTEIN; Value: 7.9; Range: 6.4-8.2; Units: GM/DL; Status: F Test: ALBUMIN; Value: 3.8; Range: 3.2-5.2; Units: GM/DL; Status: F Test: ALBUMIN/GLOBULIN RATIO; Value: 0.93; Range: 1.00-1.93; Abnormal: Below low normal; Status: F Lab Order: MAGNESIUM LEVEL; [facility] 07/07/16 12:42 Test: MAGNESIUM LEVEL; Value: 1.9; Range: 1.8-2.4; Units: MG/DL; Status: F Lab Order: CARDIAC MARKER PANEL; [facility] 07/07/16 19:51 Test: CPK CREATINE PHOSPHOKINASE; Value: 317; Range: 39-308; Abnormal: Above high normal; Units: U/L; Status: F Test: CK-MB VALUE MASS; Value: 5.7; Range: 0.0-3.6; Abnormal: Above high normal; Units: NG/ML; Status: F Test: MB/CK RELATIVE INDEX; Value: 1.79; Range: < OR =4; Status: F Test: TROPONIN I; Value: < 0.02; Range: < 0.10; Units: NG/ML; Status: F Test Note: ; DIAGNOSIS CRITERIA MMB ng/ml Relative Index (RI) NON-AMI < or = 5 N/A [place]ONE > 5 < or = 4 AMI > 5 > 4 Lab Order: CBC WITH DIFFERENTIAL; [facility]07/08/16 08:21 Test: WHITE BLOOD COUNT; Value: 9.2; Range: 4.0-10.0; Units: K/mm3; Status: F Test: RED BLOOD COUNT; Value: 4.62; Range: 4.30-6.10; Units: M/mm3; Status: F Test: HEMOGLOBIN; Value: 15.8; Range: 14.0-18.0; Units: g/dl; Status: F Test: HEMATOCRIT; Value: 45.2; Range: 42.0-52.0; Units: %; Status: F Test: MEAN CORPUSCULAR VOLUME; Value: 97.7; Range: 80.0-96.0; Abnormal: Above high normal; Units: fl; Status: F Test: MEAN CORPUSCULAR HEMOGLOBIN; Value: 34.1; Range: 27.0-33.0; Abnormal: Above high normal; Units: pg; Status: F Test: MEAN CORPUSCULAR HGB CONC; Value: 34.9; Range: 32.0-36.5; Units: g/dl; Status: F Test: RED CELL DISTRIBUTION WIDTH; Value: 12.5; Range: 11.5-14.5; Units: %; Status: F Test: PLATELET COUNT, AUTOMATED; Value: 193; Range: 150-450; Units: k/mm3; Status: F Test: NEUTROPHILS %; Value: 58.6; Range: 36.0-66.0; Units: %; Status: F Test: LYMPH %; Value: 29.7; Range: 24.0-44.0; Units: %; Status: F Test: MONO %; Value: 6.1; Range: 0.0-5.0; Abnormal: Above high normal; Units: %; Status: F Test: EOS %; Value: 1.9; Range: 0.0-3.0; Units: %; Status: F Test: BASO %; Value: 0.8; Range: 0.0-1.0; Units: %; Status: F Test: LARGE UNSTAINED CELL %; Value: 2.9; Range: 0.0-4.0; Units: %; Status: F Test: NEUTROPHILS #; Value: 5.4; Range: 1.8-7.7; Units: K/mm3; Status: F Test: LYMPH #; Value: 2.7; Range: 1.5-4.5; Units: K/mm3; Status: F Test: MONO #; Value: 0.6; Range: 0.0-0.8; Units: K/mm3; Status: F Test: EOS #; Value: 0.2; Range: 0.0-0.50; Units: K/mm3; Status: F Test: BASO #; Value: 0.1; Range: 0.0-0.2; Units: K/mm3; Status: F Test: LARGE UNSTAINED CELL #; Value: 0.3; Range: 0.0-0.4; Units: K/mm3; Status: F Lab Order: COMPLETE COMPHRENSIVE METABOLI; SPEC'M 07/08/16 08:21 Test: GLUCOSE, FASTING; Value: 109; Range: 70-105; Abnormal: Above high normal; Units: MG/DL; Status: F Test: BLOOD UREA NITROGEN; Value: 15; Range: 7-18; Units: MG/DL; Status: F Test: CREATININE FOR GFR; Value: 0.92; Range: 0.70-1.30; Units: MG/DL; Status: F Test: GLOMERULAR FILTRATION RATE; Value: > 60.0; Range: >60; Status: F Test: SODIUM LEVEL; Value: 141; Range: 136-145; Units: MEQ/L; Status: F Test: POTASSIUM SERUM; Value: 4.1; Range: 3.5-5.1; Abnormal: Delta; Units: MEQ/L; Status: F Test: CHLORIDE LEVEL; Value: 104; Range: 98-107; Units: MEQ/L; Status: F Test: CARBON DIOXIDE LEVEL; Value: 29; Range: 21-32; Units: MEQ/L; Status: F Test: ANION GAP; Value: 8; Range: 8-16; Units: MEQ/L; Status: F Test: CALCIUM LEVEL; Value: 9.0; Range: 8.5-10.1; Units: MG/DL; Status: F Test: AST/SGOT; Value: 31; Range: 15-37; Units: U/L; Status: F Test: ALT/SGPT; Value: 35; Range: 12-78; Units: U/L; Status: F Test: ALKALINE PHOSPHATASE; Value: 70; Range: 45-117; Units: U/L; Status: F Test: BILIRUBIN,TOTAL; Value: 0.8; Range: 0.2-1.0; Units: MG/DL; Status: F Test: TOTAL PROTEIN; Value: 6.8; Range: 6.4-8.2; Units: GM/DL; Status: F Test: ALBUMIN; Value: 3.4; Range: 3.2-5.2; Units: GM/DL; Status: F Test: ALBUMIN/GLOBULIN RATIO; Value: 1.00; Range: 1.00-1.93; Status: F Test Note: ; Units are mL/min/1.73 m2 Chronic Kidney Disease Staging per NKF: Stage I & II GFR >=60 Normal to Mildly Decreased Stage III GFR 30-59 Moderately Decreased Stage IV GFR 15-29 Severely Decreased Stage V GFR <15 Very Little GFR Left ESRD GFR <15 on BEAN WEIGHER Lab Order: MAGNESIUM LEVEL; [facility] 07/08/16 08:21 Test: MAGNESIUM LEVEL; Value: 2.0; Range: 1.8-2.4; Units: MG/DL; Status: F Lab Order: PROTHROMBIN TIME PROFILE\\E\\INR; [facility]07/08/16 08:21 Test: PROTHROMBIN TIME; Value: 14.7; Range: 12.3-14.5; Abnormal: Above high normal; Units: SECONDS; Status: F Test: INR; Value: 1.14; Status: F Test Note: ; THERAPUTIC HUMAN INR VALUES INDICATIONS NORMAL RANGES PROPHYLAXIS/TREATMENT OF: VENOUS THROMBOSIS 2.0-3.0 PULMONARY EMBOLISM 2.0-3.0 PREVENTION OF SYSTEMIC EMBOLISM FROM: TISSUE HEART VALVES 2.0-3.0 ACUTE MYOCARDIAL INFARCTION 2.0-3.0 VALVULAR HEART DISEASE 2.0-3.0 ATRIAL FIBRILLATION 2.0-3.0 MECHANICAL VALVES(HIGH RISK) 2.5-3.5 RECURRENT MYOCARDIAL INFARCTION 2.5-3.5 Lab Order: CARDIAC MARKER PANEL; [facility]07/08/16 00:05 Test: CPK CREATINE PHOSPHOKINASE; Value: 258; Range: 39-308; Units: U/L; Status: F Test: CK-MB VALUE MASS; Value: 6.3; Range: 0.0-3.6; Abnormal: Above high normal; Units: NG/ML; Status: F Test: MB/CK RELATIVE INDEX; Value: 2.44; Range: < OR =4; Status: F Test: TROPONIN I; Value: < 0.02; Range: < 0.10; Units: NG/ML; Status: F Test Note: ; DIAGNOSIS CRITERIA MMB ng/ml Relative Index (RI) NON-AMI < or = 5 N/A [place] > 5 < or = 4 AMI > 5 > 4 Lab Order: CARDIAC MARKER PANEL; [facility] 07/08/16 08:21 Test: CPK CREATINE PHOSPHOKINASE; Value: 198; Range: 39-308; Units: U/L; Status: F Test: CK-MB VALUE MASS; Value: 4.9; Range: 0.0-3.6; Abnormal: Above high normal; Units: NG/ML; Status: F Test: MB/CK RELATIVE INDEX; Value: 2.47; Range: < OR =4; Status: F Test: TROPONIN I; Value: < 0.02; Range: < 0.10; Units: NG/ML; Status: F Test Note: ; DIAGNOSIS CRITERIA MMB ng/ml Relative Index (RI) NON-AMI < or = 5 N/A [place] > 5 < or = 4 AMI > 5 > 4 Radiology Order: EKG-ADULT Test: EKG-ADULT REASON FOR EXAMINATION: Chest Pain; Stationary ECG Study; [facility] ED; ; Test Date: 2016-07-07; Pat Name: ARLEY HARRIS Department:; Room: -; Gender: M Men'S 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 RBBB; ; Electronically Signed On 07-07-2016 19:17:33 EST by Ollie Jones; Radiology Order: portable chest Test: portable chest REASON FOR EXAMINATION: Chest Pain; Portable chest x-ray: Sitting AP view.; ; History: Chest pain.; ; Findings: The lungs are well inflated and clear. Pleural angles are sharp.; Heart is not enlarged. EKG electrodes are seen. An azygos lobe is noted; incidentally as before. The patient is status post lower cervical spine fusion.; ; Impression:; ; No active disease.; ; ; Signed by; Kevin Boogie MD 07/07/2016 04:03 P; Radiology Order: ECG WITH READING ER PHYS Test: ECG WITH READING ER PHYS REASON FOR EXAMINATION: CHEST PAIN; Stationary ECG Study; [facility] ED; ; Test Date: 2016-07-07; Pat Name: ARLEY STEVEN Department:; Room: -; Gender: M Men'S Garment Fitter: pq; : 1970 Requested By: Ollie Cuello; Order Number: [id number] Reading MD: Ollie Jones; Measurements; Intervals [place]; Rate: 114 P:; MD: 0 QRS: -30; QRSD: 72 T: 29; QT: 332; QTc: 458; Interpretive Statements; ATRIAL FIBRILLATION WITH RAPID VENTRICULAR RESPONSE; INC. RBBB; BORDERLINE LEFT AXIS DEVIATION; RATE IMPROVED FROM 07/07/15 12:37; Electronically Signed On 07-07-2016 19:20:48 EST by Ollie Jones; Outcome: 15:37 Decision to Hospitalize by Provider. pc 21:22 Decision to Hospitalize by Provider. pc 07/08 17:54 Patient left the ED. deg Signatures: Dispatcher [employer] EDCO lOlie Jones MD MD pc Murray, Denise, Denture Waxer Unit deg Salome Putnam, RN RN Magaly Maldonado, Frankie Reg lg Saji De Santiago, Denture Waxer Unit ml3 Trung Santiago, PIPE STEM ALIGNER PIPE STEM ALIGNER kb5 Saeid Laughlin RN RN ml6 Zoila PalmRN RN ld5 Dayanna DurantRN RN Dileep Cuevas dem1 Love Lancaster Gainslee gr2 Kaylee Landry,RN RN mlc Zoila Palm RN ld5 Corrections: (The following items were deleted from the chart) 07/07 12:40 12:37 EKG done. (by ED staff). Reviewed by Elena Lake MD dem1 dem1 12:58 12:43 PSHx: ACDFI; ml6 ml6 07/08 01:03 07/07 22:39 General: report given to Carmen Farley, ELIZABETH (enriquez nurse). mlc mlc Chart Complete MTDD
--- NOTE | 2016-07-10 18:59 | CR ---
DATE OF CONSULTATION: 07/10/2016 CHIEF COMPLAINT: 1. Generalized body pain. 2. Neck pain. 3. Low back pain. HISTORY OF PRESENT ILLNESS: Umesh is a 45-year-old male with multiple comorbidities admitted to progressive care unit (PCU) for atrial fibrillation with elements of congestive heart failure 07/07/2016.Current history of alcohol dependence and also benzodiazepine dependence. Rating pain level as 7/10. States that he has been managing pain with hydrocodone 7.5/325, 3-4 tablets per day for the past 2-[address] Dumont, his family practitioner. The patient states pain is uncontrolled so he drinks alcohol to compensate. States that he is not able to get any increase in pain medication from Dr. Dumont. He has trialed multiple different injection therapies, the last being done approximately five years ago at [facility] and he is not interested in injection therapy trials again. History of two cervical surgeries, one being a cervical fusion approximately 10 years ago. 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 Today I told him of our concerns of being on benzodiazepine and narcotic pain medication, as well as his chronic use of alcohol and marijuana. I offered him assistance with alcohol dependency and he refuses to see this as a problem. He also became slightly agitated when I told him of my concerns of using benzodiazepines with narcotic pain medications. PAST MEDICAL HISTORY: 1. Hypertension. 2. Chronic pain. 3. Alcohol dependence. 4. Chronic obstructive pulmonary disease. 5. Gastroesophageal reflux disease. 6. Atrial fibrillation. PAST SURGICAL HISTORY: 1. Cervical (C) spine fusion. 2. Knee surgery. FAMILY HISTORY: Throat cancer, breast cancer, bladder cancer, heart attack, diabetes. SOCIAL HISTORY: The patient states he lives alone. Reports supportive family live nearby. Reports depression. Denies suicidal ideations. He is a current smoker. He states that he uses marijuana regularly. He does report drinking daily but is vague about how much. He denies being alcohol dependent or having any issues with alcohol. ALLERGIES: No known drug allergies. REVIEW OF SYSTEMS: CARDIAC: Denies chest pains or shortness of breath. RESPIRATORY: Denies shortness of breath or cough. ABDOMEN: Denies abdominal pain. Reports episodes of acid reflux. GASTROINTESTINAL (GI): Denies diarrhea. Denies nausea or vomiting. MUSCULOSKELETAL: Reports chronic right hip pain. Reports chronic knee pain. Reports chronic neck and generalized back pain. GENITOURINARY (): Reporting normal urination. Denies hematuria. NEUROLOGIC: Does report headaches. Denies history of seizures. PHYSICAL EXAMINATION: GENERAL: Awake, alert, pleasant. VITAL SIGNS: Temperature 97.1, pulse 96, respiratory rate 20, blood pressure 131/89, O2 saturation 96% on room air. CARDIAC: S1, S2, normal rate and rhythm. RESPIRATORY: Lung sounds clear. Respirations nonlabored. MUSCULOSKELETAL: Range of joint motion of the upper and lower extremities is full. Muscle strength 5/5. Reporting normal sensation to light touch upper and lower extremities. INSPECTION OF SPINE: Tenderness to palpation of the cervical, thoracic and lumbosacral (LS) axis. ASSESSMENT: 1. Chronic generalized pain syndrome. 2. Generalized arthropathy. 3. Substance abuse disorder. PLAN: Unfortunately, the patient at this point is not willing to come to terms with the problems associated with use of benzodiazepines and opioids, as well as his multitude of medical issues that can be complicated by the combination of both. He is not interested in interventional therapy that we offer at our clinic. He is not interested in assistance with any history of alcohol abuse. Unfortunately, his options are limited and would be in the guidance of his primary care provider on discharge, Dr. Dumont. ALISIA
[2016-07-10 20:57] VITALS: BP 105/83
[2016-07-10 23:56] VITALS: BP 96/61
[2016-07-11 05:09] VITALS: BP 125/85
[2016-07-11 05:15] VITALS: BP 125/85
[2016-07-11] MEDS: METOPROLOL TART 50 MG TAB PO SCH ×2 (05:15)
[2016-07-11] MEDS: ANEXSIA, NORCO 7.5MG/325MG TABLET(HYDROCODONE/APAP) PO PRN (05:17)
[2016-07-11 07:07] LABS: BASO % 0.6 % (0.0-1.0); EOS # 0.2 K/mm3 (0.0-0.50); EOS % 4.2 % (0.0-3.0); LARGE UNSTAINED CELL # 0.1 K/mm3 (0.0-0.4); LARGE UNSTAINED CELL % 2.2 % (0.0-4.0); LYMPH % 37.8 % (24.0-44.0); MEAN CORPUSCULAR HEMOGLOBIN 34.5 pg (27.0-33.0); MEAN CORPUSCULAR HGB CONC 34.5 g/dl (32.0-36.5); MEAN CORPUSCULAR VOLUME 99.8 fl (80.0-96.0); MONO # 0.4 K/mm3 (0.0-0.8); MONO % 6.9 % (0.0-5.0); NEUTROPHILS # 2.6 K/mm3 (1.8-7.7); NEUTROPHILS % 48.5 % (36.0-66.0); PLATELET COUNT, AUTOMATED 187 k/mm3 (150-450); RED CELL DISTRIBUTION WIDTH 12.5 % (11.5-14.5); WHITE BLOOD COUNT 5.3 K/mm3 (4.0-10.0)
[2016-07-11 07:13] LABS: INR 1.16
[2016-07-11 07:26] LABS: ALBUMIN 3.2 GM/DL (3.2-5.2); ALKALINE PHOSPHATASE 55 U/L (45-117); ALT/SGPT 37 U/L (12-78); ANION GAP 5 MEQ/L (8-16); AST/SGOT 29 U/L (15-37); BILIRUBIN,TOTAL 0.3 MG/DL (0.2-1.0); BLOOD UREA NITROGEN 17 MG/DL (7-18); CALCIUM LEVEL 8.4 MG/DL (8.5-10.1); CARBON DIOXIDE LEVEL 29 MEQ/L (21-32); CHLORIDE LEVEL 109 MEQ/L (98-107); CREATININE FOR GFR 0.93 MG/DL (0.70-1.30); GLOMERULAR FILTRATION RATE > 60.0 (>60); GLUCOSE, FASTING 100 MG/DL (70-105); MAGNESIUM LEVEL 1.8 MG/DL (1.8-2.4); POTASSIUM SERUM 3.9 MEQ/L (3.5-5.1); SODIUM LEVEL 143 MEQ/L (136-145); TOTAL PROTEIN 6.4 GM/DL (6.4-8.2)
[2016-07-11 07:30] VITALS: BP 100/71
[2016-07-11 08:39] LABS: AMPHETAMINES URINE REFLEX NEGATIVE (NEGATIVE); BARBITURATES URINE REFLEX NEGATIVE (NEGATIVE); BENZODIAZEPINES URINE REFLEX POSITIVE (NEGATIVE); COCAINE METABOLITE URINE REFLE NEGATIVE (NEGATIVE); CONTROL LINE INT CTR LINE PRESENT; METHADONE URINE REFLEX NEGATIVE (NEGATIVE); OPIATES URINE REFLEX POSITIVE (NEGATIVE); TRICYCLIC ANTIDEPRESS UR REFL NEGATIVE (NEGATIVE)
[2016-07-11] MEDS: THIAMINE 100 MG TAB PO SCH (09:29)
[2016-07-11] MEDS: OMEPRAZOLE 20 MG CAP PO SCH (09:30)
[2016-07-11] MEDS: NICOTINE 21MG/24HR 1 EA TRANSDERMAL TD SCH (09:30)
[2016-07-11] MEDS: ALPRAZolam 0.5 MG TAB PO SCH (09:30)
[2016-07-11] MEDS: FOLIC ACID 1 MG TAB PO SCH (09:30)
[2016-07-11] MEDS: MULTIVITAMINS/MINERALS THERAP 1 TAB PO SCH (09:30)
[2016-07-11] MEDS ORDERED: TOPR100T PO (09:54)
[2016-07-11] MEDS ORDERED: FOLI1TAB2 PO (09:54)
[2016-07-11] MEDS ORDERED: VITMTA PO (09:54)
[2016-07-11] MEDS ORDERED: THIA100TA PO (09:54)
[2016-07-11] MEDS ORDERED: NICO21PAT TD (09:54)
--- NOTE | 2016-07-11 10:34 | IPNPDOC ---
[facility] Cardiology Progress Note Date of Service/Time The patient was seen on 07/11/16 at 10:24. Cardiology Progress Note Mr Harris is a 45 y/o male who initially presented with mid sternal chest pressure, experiencing rapid heart rate, increased SOB of many months duration that had progressively gotten worse, he was found in the ED to have new onset Atrial fibrillation with rapid ventricular response, with a rate in the 190's. OBJECTIVE: PHYSICAL EXAMINATION: VITAL SIGNS: Please see below. GENERAL APPEARANCE: appears comfortable, sitting upright, conversant, in no distress HEENT: NCAT, moist mucus membranes, tongue midline, nares patent b/l, PERRLA, EOMI LUNGS: CTA b/l, cannot appreciate any wheezing, rhonchi or rales one examination HEART: irregularly irregular, rate in 90's normal s1 and s2, cannot appreciate any murmurs, rubs or gallops on exam. ABDOMEN: NABSx4, non-distended, non-tender, no organomegaly appreciated SKIN: intact EXTREMITIES: no edema or cyanosis appreciated NEUROLOGICAL: no focal deficit appreciated PSYCHIATRIC: normal affect and mood LABORATORY WORK: Please see below. ASSESSMENT AND PLAN: Mr Harris seems to be doing well this morning, he denies SOB, chest pain or experiencing palpitations. His Cardizem was stopped yesterday in light of his reduced systolic ejection fraction on recent ECHO in hospital, and his heart rate has been stable, he had a few episodes of bradycardia one day ago but seems to be hovering in the 90's now. From our standpoint, the patient is okay to be discharged. We would recommend he be changed from metoprolol tartrate current therapy to metoprolol succinate 100 BID and be placed on xaralto medical therapy. It is with the hope that he will convert on medical therapy alone when discharged, however should he not then on outpatient follow up we would likely suggest amiodarone therapy and cardioversion after LEN. It was again discussed with patient the crucial need to cut back and ultimately cease his alcohol intake, as this will only make his rapid heart rate a consistent problem despite medical intervention. The patient understood. No further recommendations at this point in time. Vital Signs/I&O VS/I&O Vital Signs Date Time Temp Pulse Resp B/P Pulse Ox O2 Delivery O2 Flow Rate FiO2 07/11/16 07:54 Room Air 07/11/16 07:30 96.3 92 20 100/71 99 07/08/16 12:00 2.0 I&O- Last 24 Hours up to 6 AM 07/11/16 06:00 Intake Total 1160 ml Output Total 425 ml Balance 735 ml Laboratory Data 24H LABS Laboratory Tests 2 07/11/16 06:52: Blood Urea Nitrogen 17, Creatinine 0.93, Sodium Level 143, Potassium Level 3.9, Chloride Level 109H, Carbon Dioxide Level 29, Calcium Level 8.4L, Aspartate Amino Transf (AST/SGOT) 29, Alanine Aminotransferase (ALT/SGPT) 37, Alkaline Phosphatase 55, Total Bilirubin 0.3, Total Protein 6.4, Albumin 3.2, Albumin/ Globulin Ratio 1.00, Anion Gap 5L, White Blood Count 5.3, Red Blood Count 4.06L , Hemoglobin 14.0, Hematocrit 40.5L, Mean Corpuscular Volume 99.8H, Mean Corpuscular Hemoglobin 34.5H, Mean Corpuscular Hemoglobin Concent 34.5, Red Cell Distribution Width 12.5, Platelet Count 187, Neutrophils (%) (Auto) 48.5, Lymphocytes (%) (Auto) 37.8, Monocytes (%) (Auto) 6.9H, Eosinophils (%) (Auto) 4.2H, Basophils (%) (Auto) 0.6, Neutrophils # (Auto) 2.6, Lymphocytes # (Auto) 2.0, Monocytes # (Auto) 0.4, Eosinophils # (Auto) 0.2, Basophils # (Auto) 0.0, Glomerular Filtration Rate > 60.0, Large Unclassified Cells # 0.1, Large Unclassified Cells % 2.2, Magnesium Level 1.8, Prothromb Time International Ratio 1.16, Prothrombin Time 14.9H 07/11/16 08:02: Urine Amphetamines Screen NEGATIVE, Urine Benzodiazepines Screen POSITIVEH, Urine Cannabinoids POSITIVEH, Urine Cocaine Metabolite NEGATIVE, Urine Opiates Screen POSITIVEH, Urine Barbiturates Screen NEGATIVE, Urine Methadone Screen NEGATIVE, Urine Tricyclic Antidepressants NEGATIVE CBC/BMP Laboratory Tests 07/11/16 06:52 Calcium Level 8.4 L, Aspartate Amino Transf (AST/SGOT) 29, Alanine Aminotransferase (ALT/SGPT) 37, Alkaline Phosphatase 55, Total Bilirubin 0.3, Total Protein 6.4, Albumin 3.2, Red Blood Count 4.06 L, Mean Corpuscular Volume 99.8 H, Mean Corpuscular Hemoglobin 34.5 H, Mean Corpuscular Hemoglobin Concent 34.5, Red Cell Distribution Width 12.5, Neutrophils (%) (Auto) 48.5, Lymphocytes (%) (Auto) 37.8, Monocytes (%) (Auto) 6.9 H, Eosinophils (%) (Auto) 4.2 H, Basophils (%) (Auto) 0.6, Neutrophils # (Auto) 2.6, Lymphocytes # (Auto) 2.0, Monocytes # (Auto) 0.4, Eosinophils # (Auto) 0.2, Basophils # (Auto) 0.0 GME ATTESTATION E ATTESTATION My preceptor for this patient encounter was physically present in the building during the encounter and was fully available. As needed, all aspects of the patient interview, examination, medical decision making process, and medical care plan development were reviewed and approved by the preceptor. Preceptor is aware and concurs with the plan as stated in the body of this note and will attest to such by his/her cosignature. SHENA CAMILO DO Jul 11, 2016 10:34
--- NOTE | 2016-07-11 20:08 | DSES ---
DATE OF ADMISSION: 07/07/2016 DATE OF DISCHARGE: 07/11/2016 DISCHARGE DIAGNOSIS: New onset atrial fibrillation with rapid ventricular response. SECONDARY DIAGNOSES: 1. Alcohol abuse. 2. Tobacco abuse. 3. Chronic pain. 4. Gastroesophageal reflux disease (GERD). 5. Chronic obstructive pulmonary disease (COPD). HOSPITALIZATION COURSE: The patient is a 45-year-old man who presented to the hospital with intermittent episodes of chest pain. He was found to be in atrial fibrillation with rapid ventricular response. He was seen by Dr. Deluca of cardiology, who felt that he has likely been in this rhythm for quite some time, given his persistent symptoms and his history. He was started on Xarelto for anticoagulation. He was rate controlled with Lopressor. At this time, he has been transitioned to metoprolol succinate 100 mg by mouth twice a day. His rate is well controlled. He is anticoagulated. The patient did have an echocardiogram that did not reveal any valvular dysfunction; however, he did have a reduced ejection fraction at 40%. SUBJECTIVE: This morning, the patient reports that he is feeling well. He has no complaints and is eager to go home. He denies any chest pain, shortness of breath, fevers, chills, nausea, vomiting, or diarrhea. OBJECTIVE: VITAL SIGNS: Temperature 96.3, pulse 92, respiratory rate 20, blood pressure 100/71, oxygen saturation 99% on room air. GENERAL: He is a dishelved, middle aged, obese, man sitting up and eating breakfast in no distress. HEENT: He is disheveled, malodorous. He has poor dentition. Moist mucous membranes. No elevation of central venous pressure. CARDIOVASCULAR EXAMINATION: S1, S2. Irregularly irregular, but not tachycardic. RESPIRATORY EXAM: Clear. ABDOMINAL EXAM: Obese. EXTREMITIES: No clubbing, cyanosis or edema. LABORATORY STUDIES: WBC 5.3, hemoglobin 14, platelet count 187. Chemistry panel: Sodium 143, potassium 3.9, chloride 109, bicarbonate 29, BUN 17, creatinine 0.9. The patient had multiple sets of cardiac enzymes, which were negative. TSH within normal limits. Toxicology positive for opiates, benzodiazepine and cannabis. The patient was receiving benzodiazepine while in the hospital but not the opiates or cannabis. Imaging: Echocardiogram as outlined above. ASSESSMENT AND PLAN: This is a 45-year-old man with newly discovered atrial fibrillation with rapid ventricular response in the setting of alcohol, tobacco and substance abuse. 1. Atrial fibrillation with rapid ventricular response. Dr. Deluca's help has been greatly appreciated. The patient is rate controlled on metoprolol 100 mg by mouth twice a day. He is anticoagulated with Xarelto. He will require further followup with cardiology should the patient fail to spontaneously convert. He may benefit from TTE and cardioversion versus amiodarone. He did have a reduced ejection fraction. It is unclear if this related to tachyarrhythmia versus some coronary disease, which he should followup with Dr. Deluca within the next two weeks. 2. Alcohol abuse. Cessation counseling offered and declined. The patient did not exhibit any signs of symptoms of withdrawal. He is chronically on benzodiazepine, Xanax 1 mg four times a day. The patient has been started on thiamine, folic acid, and multivitamin. 3. Tobacco abuse. Cessation counseling offered. The patient has been provided with a nicotine patch. 4. Substance abuse. Cessation counseling offered. The patient declines intervention at this time. 5. Chronic pain. The patient was seen by the pain clinic. He was previously discharged from the pain clinic in [place]. Leta Garcia did see the patient while he was here and he declined services and interventional therapies offered and was not interested in pursuing followup with the pain clinic. As such, he will followup with his primary care provider. 6. Gastroesophageal reflux disease (GERD). The patient has chest pain related to this. It did improve with omeprazole twice daily. He has had multiple cardiac enzymes that were negative, and EKG, which did not reveal any ischemic changes. 7. Chronic obstructive pulmonary disease (COPD). The patient was at his baseline respiratory status with no decompensation. 8. Deep vein thrombosis (DVT) prophylaxis. The patient is on Xarelto. He will receive further samples of that medication from Dr. Deluca, prior authorization has been completed and it is available for him at his pharmacy. DISPOSITION: The patient is being discharged home under the care of his family, whom he lives with. His activity is as prior to admission. His diet is as prior to admission. He is to return to the emergency room should his symptoms worsen. He is to avoid alcohol and tobacco products. MEDICATIONS: At the time of discharge: - folic acid 1 mg daily - metoprolol succinate 100 mg twice a day - multivitamin one tablet daily - nicotine patch 21 mg per 24 hours daily - Xarelto 20 mg daily - thiamine 100 mg daily - [place] 7/325 mg one tablet three times daily for pain - Xanax 1 mg four times daily as needed for anxiety - omeprazole 20 mg twice a day The patient was discontinued from hydrochlorothiazide and triamterene.
[2016-07-15 14:11] LABS: GC Carboxy THC >300 ng/mL (Cutoff=10); GC OH-Alprazola >1000 ng/mL (Cutoff=300); GC Oxazepam >1000 ng/mL (Cutoff=300)
== END 2016-07-11 12:15 | disposition home or self-care (01) | DRG 310 ==
LOC: M ED 12:27 → M PCU 17:35 → M ED INP 17:36 → M PCU 07-08 17:46
PROVIDERS: ADMIT Hospitalist; ATTEND Internal Medicine Nephrology
DX: I48.91 Unspecified atrial fibrillation (principal); I10 Essential (primary) hypertension; F10.20 Alcohol dependence, uncomplicated; K21.9 Gastro-esophageal reflux disease without esophagitis; J44.9 Chronic obstructive pulmonary disease, unspecified; M54.5 Low back pain; M54.2 Cervicalgia; F17.210 Nicotine dependence, cigarettes, uncomplicated; Z83.3 Family history of diabetes mellitus; Z80.3 Family history of malignant neoplasm of breast; Z80.52 Family history of malignant neoplasm of bladder; Z82.49 Family history of ischemic heart disease and other diseases of the circulatory system; Z80.1 Family history of malignant neoplasm of trachea, bronchus and lung; E87.6 Hypokalemia; E83.42 Hypomagnesemia

== ENCOUNTER 2016-11-28 18:26 | Emergency (ER) | payer OTHER ==
[~2016-11-28] VITALS: Ht 182.9 cm; Wt 106.6 kg
[~2016-11-28 18:26] MED LIST changes: +FOLI1TAB2 PO; +NICO21PAT TD; +NORC7.5T PO; +OMEP20TA PO; +THIA100TA PO; +TOPR100T PO; +TRIA37.53 PO; +VITMTA PO; +XANA1TAB2 PO; +XARE20TA PO
[2016-11-28] MEDS ORDERED: AMLO25TA PO (18:40)
[2016-11-28] MEDS ORDERED: ASPIRIN 81 MG CHEW TABLET PO ONE (19:00)
[2016-11-28] MEDS: NITROGLYCERIN 0.4 MG SUBL TABLET SL PRN ×3 (19:00→19:19)
[2016-11-28 19:07] LABS: BASO % 0.2 % (0.0-1.0); EOS # 0.2 K/mm3 (0.0-0.50); LARGE UNSTAINED CELL # 0.2 K/mm3 (0.0-0.4); LARGE UNSTAINED CELL % 1.8 % (0.0-4.0); LYMPH # 3.3 K/mm3 (1.5-4.5); LYMPH % 29.8 % (24.0-44.0); MEAN CORPUSCULAR HEMOGLOBIN 32.7 pg (27.0-33.0); MEAN CORPUSCULAR HGB CONC 33.9 g/dl (32.0-36.5); MEAN CORPUSCULAR VOLUME 96.4 fl (80.0-96.0); MONO # 0.7 K/mm3 (0.0-0.8); MONO % 6.7 % (0.0-5.0); NEUTROPHILS # 6.1 K/mm3 (1.8-7.7); NEUTROPHILS % 59.5 % (36.0-66.0); PLATELET COUNT, AUTOMATED 212 k/mm3 (150-450); RED CELL DISTRIBUTION WIDTH 14.2 % (11.5-14.5); WHITE BLOOD COUNT 10.3 K/mm3 (4.0-10.0)
[2016-11-28 19:19] VITALS: BP 141/80
[2016-11-28 19:27] LABS: ANION GAP 9 MEQ/L (8-16); BLOOD UREA NITROGEN 8 MG/DL (7-18); CALCIUM LEVEL 9.1 MG/DL (8.5-10.1); CARBON DIOXIDE LEVEL 28 MEQ/L (21-32); CHLORIDE LEVEL 100 MEQ/L (98-107); CREATININE FOR GFR 0.98 MG/DL (0.70-1.30); GLOMERULAR FILTRATION RATE > 60.0 (>60); GLUCOSE, FASTING 139 MG/DL (70-105); POTASSIUM SERUM 3.3 MEQ/L (3.5-5.1); SODIUM LEVEL 137 MEQ/L (136-145)
[2016-11-28] MEDS ORDERED: POTASSIUM CHLORIDE 10 MEQ SR TABLET PO ONE (19:30)
[2016-11-28] MEDS ORDERED: GI COCKTAIL 50ML BTL(HYOSCYAMINE/MAALOX/LIDOCAINE VISCOUS)(1:3:1) PO ONE (19:45)
--- NOTE | 2016-11-28 19:48 | REP ---
CHEST, SINGLE VIEW: COMPARISON: 07/07/2016 There is no evidence of acute infiltrate. No pleural effusion is seen. The heart is normal in size. The mediastinal silhouette is unremarkable. The visualized osseous structures are intact. IMPRESSION: No acute pulmonary disease. Signed by Herson Harrison MD 11/29/2016 01:38 P
[2016-11-29 02:32] VITALS: BP 138/88
--- NOTE | 2016-11-30 07:15 | ECGEPIP ---
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
--- NOTE | 2016-11-30 07:20 | ECGEPIP ---
Stationary ECG Study [facility] - ED Test Date: 2016-11-29 Pat Name: ARLEY ANN Department: Room: - Gender: M Returns Clerk: sylvia : 1970 Requested By: DAR Moreno Order Number: [id number] Reading MD: Love Wray Measurements Intervals [place] Rate: 73 P: 64 [place]: 151 QRS: 4 QRSD: 81 T: 30 QT: 414 QTc: 459 Interpretive Statements SINUS RHYTHM NSTTW ABNORMALITY SIMILAR 11/28/16 Electronically Signed On 11-30-2016 7:20:40 EDT by Love Wray
== END 2016-11-29 02:36 | disposition home or self-care (01) ==
LOC: M ED 18:54
DX: R07.9 Chest pain, unspecified (principal); R94.31 Abnormal electrocardiogram [ECG] [EKG]; I48.91 Unspecified atrial fibrillation; K21.9 Gastro-esophageal reflux disease without esophagitis; F32.9 Major depressive disorder, single episode, unspecified; G89.29 Other chronic pain; F17.200 Nicotine dependence, unspecified, uncomplicated; Z79.01 Long term (current) use of anticoagulants; Z79.899 Other long term (current) drug therapy

== ENCOUNTER → 2017-09-19 | Outpatient (CLI) | payer OTHER ==
[~2017-09-19] MED LIST changes: -COLA100C2; +E-Z-GAS II EFFERVESCENT PACKET (SODIUM BICARB./CITRIC ACID/SIMETHICONE) As Ordered; +E-Z-HD 98% w/w 340GM SUSP BTL As Ordered; +E-Z-PAQUE 96% w/w SUSP 176GM BTL As Ordered; -FOLI1TAB2 PO; -KEFL500C; -NEUR600T; -NICO21PAT TD; -NORC7.5T PO; -OMEP20TA PO; -PERC5TAB8; -PRIL20CA; -THIA100TA PO; -TOPR100T PO; -TRIA37.53 PO; -VITMTA PO; -XANA1TAB2 PO; -XARE20TA PO
== END ==
LOC: M RAD 09:32
DX: R10.9 Unspecified abdominal pain (principal); K44.9 Diaphragmatic hernia without obstruction or gangrene
CPT/HCPCS: 74241

== ENCOUNTER 2018-02-19 19:34 | Emergency (ER) | payer OTHER ==
[2018-02-19] MEDS: NALOXONE INJ 2 MG/2 ML SYRINGE (J2310) IV (19:37)
[2018-02-19] MEDS: EPINEPHrine 1MG/10ML SYRINGE 1.5IN IV ×2 (19:38→19:43)
[2018-02-19] MEDS: SODIUM BICARBONATE 8.4% INJ 50 ML SYRINGE IV (19:39)
[2018-02-22 14:41] LABS: BEDSIDE GLUCOSE 146 MG/DL (70-105)
== END 2018-02-19 23:28 | disposition expired ==
LOC: M ED 19:34
DX: I46.9 Cardiac arrest, cause unspecified (principal); J44.9 Chronic obstructive pulmonary disease, unspecified; I10 Essential (primary) hypertension; I48.91 Unspecified atrial fibrillation; K21.9 Gastro-esophageal reflux disease without esophagitis
CPT/HCPCS: J2310

== ENCOUNTER → 2018-02-20 | Outpatient (REF) | LOC: M LAB 09:52 ==